=== PATIENT | male | born 1980 | race Caucasian/White ===

== ENCOUNTER 2019-11-12 15:28 | Day surgery (SDC) | payer SELFPAY ==
[2019-11-12] VITALS (11 sets, daily range): BP systolic 126–154; BP diastolic 78–99; PULSE 63–90; RESP 15–18; TEMP 36.1–37.3; O2SAT 97–100
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
[2019-11-12] MEDS: LORazepam 2 mg/mL INJ 1 mL IM (16:08)
[2019-11-12 17:26] LABS: Basophils % 0.4 %; Eosinophils # 0.2 10^3/uL (0.0-0.8); Eosinophils % 1.7 %; Hematocrit 52.3 % (42.0-52.0); Hemoglobin 17.5 g/dL (11.7-16.6); Lymphocytes # 1.9 10^3/uL (0.8-4.8); Lymphocytes % 17.7 %; Mean Corpuscular HGB Conc 33.5 g/dL (30.0-36.0); Mean Corpuscular Volume 92.6 fL (80-94); Mean Platelet Volume 9.1 fL (7.4-10.4); Monocytes # 0.8 10^3/uL (0.2-0.9); Monocytes % 7.1 %; Neutrophils # 7.9 10^3/uL (1.8-7.7); Neutrophils % 72.7 %; Nucleated Red Blood Cells % 0 %; Platelet Count 251 10^3/cmm (130-400); Red Blood Count 5.65 10^6/uL (4.1-5.3); Red Cell Distribution Width 13.4 % (12.1-15.1); White Blood Count 10.8 10^3/uL (4.0-10.0)
[2019-11-12 17:46] LABS: Alanine Aminotransferase 42 U/L (0-41); Albumin Level 4.7 g/dL (3.5-5.2); Alkaline Phosphatase 63 IU/L (40-130); Anion Gap 17.1 (5-19); Aspartate Amino Transferase 74 U/L (0-40); Blood Urea Nitrogen 23 mg/dL (6-20); Calcium 9.3 mg/dL (8.5-10.5); Carbon Dioxide 26 mmol/L (22-29); Chloride 100 mmol/L (98-107); Globulin 2.8 g/dL (1.3-4.6); Glomerular Filtration Rate 74.9 mL/min (90-130); Glucose 89 mg/dL (65-115); Osmolality Calculated 284 mOsm/kg (285-295); Potassium 4.1 mmol/L (3.5-5.1); Sodium 139 mmol/L (136-145); Total Bilirubin 0.8 mg/dL (0.15-1.2); Total Protein 7.5 g/dL (6.6-8.7)
[2019-11-12] MEDS: sodium chloride 0.9% 1,000 ML 30 ML IV (17:50)
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
--- NOTE | 2019-11-12 18:36 | PC.NURSE ---
large yellow ball removed from rectum and disposed of in biohazard trash. berta maldonado
--- NOTE | 2019-11-12 18:57 | PM.OP ---
Operative Report Date of procedure: November 12, 2019 Pre-op Diagnosis: fB rectum Post-op Diagnosis: 9 cm diameter rubber ball in rectum Procedure Done: Flexible sigmoidoscopy Rectal exam under anesthesia with removal of foreign body Specimens removed/disposition: Foreign body rectum, no pathology sent Surgeon: Jose D Baer Anesthesia: MAC Estimated blood loss (mL): 5 Condition: stable Disposition: PACU Procedure: The patient was taken to the operating room and intubated under general anesthesia and placed in lithotomy position. A colonoscope was introduced and advanced into the rectum where the ball was identified. Attempt was made using biopsy forceps to grab the plastic covering over the ball which was unsuccessful. By applying counterpressure on the lower abdomen I was able to slowly free the rubber ball from the suction to the rectal vault until the ball was removed. The colonoscope was introduced and advanced up to the mid sigmoid colon. There was congestion and edema noted in the rectum but no evidence of mucosal tear or perforation. The patient was extubated and transferred to recovery room in stable condition.
--- NOTE | 2019-11-12 19:02 | ANES.PREANE2 ---
Pre-Anesthetic Assessment Pre-Anesthetic Assessment: Height/Weight: Temp Pulse Resp BP Pulse Ox 983.1 F H 64 16 126/78 99 11/12/19 18:57 11/12/19 18:57 11/12/19 18:57 11/12/19 18:57 11/12/19 18:57 Preop Diagnosis: fB rectum Proposed Procedure: Operation Date: 11/12/19 18:00 Proposed Procedures p Foreign Body Removal(Not Applicable) - Jose D Baer MD Was Beta Jeronimo taken within 24 hours: N/A Last intake: NPO since 9AM today Social: Social History: Alcohol and Tobacco Exam: Pre-Anes Outpt Exam: alert, oriented x 3, clear to auscultation bilaterally and regular rate & rhythm Airway: Submandibular: WNL Cervical ROM: WNL MP: 2 History/ROS: No significant history except as noted Pulmonary: Pulmonary: None reported CV/HEM: CV/HEM: None reported : : None reported Hepatic: Hepatic: None reported GI: GI: None reported Metabolic: Metabolic: None reported Musc/skel: Musc/skel: None reported Neuropsych: Neuropsych: None reported Anesthetic Plan: ASA status: 2E Anesthesia: General Meds/Allergies Current Medications: Current Medications Generic Name Dose Route Start Last Admin Trade Name Freq PRN Reason Stop Dose Admin Sodium Chloride 1,000 mls @ 30 ml s/hr 11/12/19 18:15 11/12/19 17:50 Sodium Chloride 0.9% IV 11/13/19 18:14 30 mls/hr .Q24H MICHELLE Administration PFSH Anesthesia PFSH: Social History Smoking and tobacco status: current every day smoker Data Anesthesia CBC & Chem 7: 11/12/19 17:15 11/12/19 17:15 Other Labs: Laboratory Results - last 48 hr 11/12/19 11/12/19 17:15 17:15 WBC 10.8 H RBC 5.65 H Hgb 17.5 H Hct 52.3 H MCV 92.6 MCH 31.0 MCHC 33.5 RDW 13.4 Plt Count 251 MPV 9.1 Neut % (Auto) 72.7 Lymph % (Auto) 17.7 [place] % (Auto) 7.1 Eos % (Auto) 1.7 Baso % (Auto) 0.4 Neut # (Auto) 7.9 H Lymph # (Auto) 1.9 [place] # (Auto) 0.8 Eos # (Auto) 0.2 Baso # (Auto) 0.0 Nucleated RBC % (auto) 0 Nucleated RBCs # 0.0 Sodium 139 Potassium 4.1 Chloride 100 Carbon Dioxide 26 Anion Gap 17.1 BUN 23 H Creatinine 1.1 GFR Calculation 74.9 L Glucose 89 Calculated Osmolality 284 L Calcium 9.3 Total Bilirubin 0.8 AST 74 H ALT 42 H Alkaline Phosphatase 63 Total Protein 7.5 Albumin 4.7 Globulin 2.8 Cardiac Studies: No Data to Display
--- NOTE | 2019-11-12 19:03 | PC.NURSE ---
#20g iv catheter inserted into right hand good blood return and easy flush. berta maldonado
--- NOTE | 2019-11-12 19:05 | SUR.PHASEI ---
PT TO PACU SLEEPY WITH GOOD RESP NOTED PT NOW MORE ALERT MASK OFF PER PT . SATS 100% ON RA TRIAL. PT DENIES PAIN AND NAUSEA ABD SOFT TO PALPATION.
--- NOTE | 2019-11-12 19:10 | SUR.PHASEI ---
PT AWAKES EASILY DENIES PAIN TAKING ICE CHIPS
== END 2019-11-12 19:58 | disposition home or self-care (01) ==
LOC: ER 16:55 → OPS 17:09
PROVIDERS: Emergency Provider Physician Assistant; Visit Provider Surgery
PROC: (CPT 45915; principal; 2019-11-12 18:00)
DX: T18.5XXA Foreign body in anus and rectum, initial encounter (principal); F17.210 Nicotine dependence, cigarettes, uncomplicated
CPT/HCPCS: 45915; 12345; 36415; 45378; 45379; 74022; 80053; 85025; 96372; 99281; J0330; J2001; J2060; J2405; J2704; J2710; J3010; J3490; J7030

== ENCOUNTER 2021-01-18 18:59 | Emergency (ER) | payer SELFPAY ==
[2021-01-18 19:04] VITALS: BP 133/89; PULSE 102; RESP 16; TEMP 36.6; O2SAT 96; BMI 36.5
--- NOTE | 2021-01-18 19:17 | ED_ITS ---
HPI - Headache General: Chief Complaint: Headache Stated Complaint: Sever Pain In Back of Head Time Seen by Provider: 01/18/21 19:09 History of Present Illness: HPI Narrative: Patient is a 40-year-old male comes to the ED with a headache. Symptoms started approximately 4 days ago. He says the initial headache pain was sharp pain in the back of his head that would radiate up to the front of his head. Today he describes the headache as generalized pressure on the back occipital region of his head. He rates it currently a 7 out of 10. He has never had any headaches like this before. Denies any worsening or improving factors. Denies any other symptoms such as vision changes, numbness tingling to extremities or face or any other neurological symptoms. Denies any injury or trauma to head recently. Associated symptoms: Deny chest pain, fever(s), nausea, rash or vomiting Review of Systems Const: Denies: fever(s), chills or fatigue Eyes: Denies: change in vision or eye discomfort ENMT: Denies: throat pain, odynophagia, nasal discharge or nasal congestion Card: Denies: chest pain, palpitations, edema, swelling of feet/ankles, dyspnea on exertion or orthopnea Resp: Denies: dyspnea, productive cough or non-productive cough GI: Denies: abdominal pain, nausea, vomiting, diarrhea, constipation or hematochezia : Denies: flank pain, difficulty urinating, dysuria or hematuria Musc: Denies: neck pain, back pain or extremity swelling Skin/Breast: Denies: rash or new lesions Neuro: Reports: headache(s); Denies: numbness in extremities or weakness in extremities [facility] ED PFSH: Social History Smoking and tobacco status: current every day smoker Physical Exam Const: COMMON NORMALS: no acute distress, patient oriented x3 and alert GENERAL APPEARANCE: cooperative and comfortable HENMT: COMMON NORMALS: normocephalic HEAD & SCALP: normocephalic MOUTH: Normal oral and palatal mucosa present THROAT: posterior oropharynx normal and uvula midline Eye: COMMON NORMALS: Equal, round and reactive pupils present, EOMs intact bilaterally and conjunctivae normal CONJUNCTIVA: Yes conjunctivae normal PUPIL: Yes Equal, round and reactive pupils present Neck/C-Spine: COMMON NORMALS: supple GENERAL: Yes normal visual inspection Resp: COMMON NORMALS: normal respiratory effort, No retractions, No use of accessory muscles and clear to auscultation bilaterally AUSCULTATION: clear t o auscultation bilaterally Cardio: COMMON NORMALS: regular rate, regular rhythm, S1 normal heart sound present, S2 normal heart sound present, No gallops present (Cardio), No clicks present (Cardio), No murmurs present (Cardio) and Peripheral pulses 2+ throughout RATE: regular rate RHYTHM: regular rhythm HEART SOUNDS: S1 normal heart sound present and S2 normal heart sound present PERIPHERAL PULSES: Peripheral pulses 2+ throughout GI: COMMON NORMALS: Normal to inspection, nondistended, normoactive bowel sounds present, Soft to palpation, non-tender and no masses PALPATION: Yes Soft to palpation : COMMON NORMALS: Yes no CVA tenderness BLADDER/KIDNEY EXAM: Yes no CVA tenderness Back/Pelvis: COMMON NORMALS: no CVA tenderness Extremity: COMMON NORMALS: normal to inspection Neuro: COMMON NORMALS: patient oriented x3, CN's II-XII intact bilaterally, moves all extremities, no focal motor deficits and no sensory deficits noted SENSORIUM/ORIENTATION: Yes alert COORDINATION/BALANCE: [id number] test normal SENSORY EXAM: Yes extremities (intact) MOTOR EXAM: 5/5 motor strength present throughout COORDINATION: [id number] test normal Skin: GENERAL SKIN EXAM: dry skin Course Reevaluation(s): Reevaluation #1: After patient received IV meds for headache he says his headache did improve. He now rates the headache a 4 out of 10 and says he is ready to be discharged. Time: 20:21 Vital Signs: Vital signs: Vital Signs Temperature 97.9 F 01/18/21 19:04 Pulse Rate 76 01/18/21 21:00 Respiratory Rate 18 01/18/21 21:00 Blood Pressure 178/113 01/18/21 21:00 Pulse Oximetry 97 01/18/21 21:00 MDM - Headache MDM Narrative: Medical decision making narrative: Patient is a 40-year-old male who comes to the ED with a severe headache in the occipital region of head. Symptoms have been going on for 4 days. He reports having headache on the occipital region of head and he describes it as a pressure. Denies any other symptoms or neurological deficits. Vital stable and neuro exam showed no deficits. CT of head showed no acute findings. Patient was given IV fluids, Reglan, Toradol and Decadron. His headache improved and he felt ready to be discharged home. Patient diagnosed with tension headache and discharged home. He was told to follow-up with his PCP in 7 to 10 days for reevaluation. Patient understood and agree with plan. Imaging Data^: CT Head: Attestation: I personally reviewed and interpreted this imaging study as follows: Radiologist's impression: [address] [address] [address] Scan Report Signed Patient: Feliberto Joseph Unit #: [id number] : 1980 Age/Sex: 40 / M ADM Date: 01/18/21 Loc: ER Room/Bed: Attending Dr: Ordering Provider/Ordering MD: Sanju Zelaya Date of Service: 01/18/21 Procedure(s): CT head wo con* [id number] Accession Number(s): [id number] Report Number: [id number] PROCEDURE INFORMATION: Exam: CT Head Without Contrast Exam date and time: 01/18/2021 7:16 PM Age: 40 years old Clinical indication: Pain; Headache; Additional info: Severe headache to back of head. TECHNIQUE: Imaging protocol: Computed tomography of the head without contrast. Radiation optimization: All CT scans at this facility use at least one of these dose optimization techniques: automated exposure control; mA and/or kV adjustment per patient size (includes targeted exams where dose is matched to clinical indication); or iterative reconstruction. COMPARISON: No relevant prior studies available. RADIATION DOSE METRICS: Total DLP (mGy-cm): 928.89 FINDINGS: Brain: Normal. No hemorrhage. Unremarkable white matter. No mass effect. Cerebral ventricles: No ventriculomegaly. Paranasal sinuses: Visualized sinuses are unremarkable. No fluid levels. Mastoid air cells: Visualized mastoid air cells are well aerated. Bones/joints: Unremarkable. No acute fracture. Soft tissues: Unremarkable. CT/CT head wo con* [id number] IMPRESSION: No acute intracranial abnormality. Radiation Dose CTDIVOL = (mGy): DLP = 928.89 (mGy-cm) Dictated By: Srini Romo Signed By: Srini Romo Signed Date/Time: 01/18/212013 DD/ 12 Discharge Plan Discharge Patient Disposition: Home Clinical Impression: Tension headache Condition: Stable Prescriptions: No Action ibuprofen 200 mg Tablet 200 - 400 mg PO Q6H PRN (Reason: HEADACHE/PAIN) RF: 0 Discharge Orders: Discharge ED (Routine); Ordered 01/18/21 Ordered By: Sanju Zelaya Discharge Diet: Regular Discharge Activity: Resume usual activity Patient Instructions: Tension Headache (ED) Activity Restrictions/Additional Instructions: Follow-up with medical provider as directed in 7 to 10 days for reevaluation. Take [id number] Tylenol or Motrin for any reoccurring headaches. Return to the ER or your medical provider if condition worsens. Please read and understand discharge instructions. Thank you for choosing [facility] for your healthcare needs today. Please realize this is an emergency room and that we are providing you with a medical screening exam and this may not be complete and all inclusive of all the testing and or work up that you may need to determine your ailment or severity of your illness. It is very important that you follow up as instructed or that you return to the Emergency Department should you have concerns or if your condition changes or worsens in any way. Coding Level of Care Code ED Heel Washer Stringing Machine Operator for Anabella Trujillo Exam Comprehensive
[2021-01-18] MEDS: metoclopramide 5 mg/mL SDV 2 mL 10 MG IVP (19:40)
[2021-01-18] MEDS: ketorolac 30 mg/mL INJ IVP (19:49)
[2021-01-18] MEDS: dexamethasone 10 mg/mL INJ IVP (19:49)
[2021-01-18] MEDS: sodium chloride 0.9% 1,000 ML 999 ML IV (19:50)
[2021-01-18 21:00] VITALS: BP 178/113; PULSE 76; RESP 18; O2SAT 97
--- NOTE | 2021-01-18 21:01 | PC.NURSE ---
reviewed patient bp with Dr. Zelaya and he states that his bp is up r/t his stressors and pain he wants him to follow up with his regular pcp to continue to monitor his bp. patient is informed to f/u with pcp
== END 2021-01-18 21:03 | disposition home or self-care (01) ==
PROVIDERS: Emergency Provider Physician Assistant
DX: G44.209 Tension-type headache, unspecified, not intractable (principal); F17.210 Nicotine dependence, cigarettes, uncomplicated
CPT/HCPCS: 70450; 96361; 96374; 96375; 99283; J1100; J1885; J2765; J7030

== ENCOUNTER 2021-01-20 08:09 | Emergency (ER) | payer SELFPAY ==
[2021-01-20 08:20] VITALS: BP 138/111; PULSE 82; RESP 17; TEMP 36.6; O2SAT 96; BMI 36.5
--- NOTE | 2021-01-20 09:37 | ED_ITS ---
HPI - General Adult General: Chief complaint: General Medical Stated complaint: wants to go to npu Time Seen by Provider: 01/20/21 08:13 History of Present Illness: HPI narrative: 40-year-old male presents emergency room wanting to be admitted. He wants to be admitted to the MPU. He states he needs to be admitted because he cannot find anywhere else to stay and he does not want to stay in a homeless detention. He does not want to stay where he is currently been staying which is evidently on the street. He denies any suicidal homicidal ideation. He denies any drug use denies any recent illness. Associated symptoms: Deny chest pain, dyspnea, malaise, nausea, rash or vomiting Review of Systems Const: Denies: fever(s), chills, body aches, change in appetite, fatigue or malaise ENMT: Denies: throat pain, ear or mastoid pain, nasal discharge or nasal congestion Card: Denies: chest pain, edema, dyspnea on exertion or orthopnea Resp: Denies: dyspnea, productive cough or non-productive cough GI: Denies: abdominal pain, nausea, vomiting, hematemesis, coffee ground emesis, diarrhea, constipation, bloating, hematochezia or melena : Denies: flank pain, dysuria, urinary frequency or urinary urgency Skin/Breast: Denies: rash or pruritus PFSH ED PFSH: Social History Smoking and tobacco status: current every day smoker Physical Exam Const: COMMON NORMALS: no acute distress GENERAL APPEARANCE: cooperative and comfortable ORIENTATION/CONSCIOUSNESS: Yes awake, Yes oriented to person, Yes oriented to place and Yes oriented to time HENMT: COMMON NORMALS: normocephalic, atraumatic and hearing grossly normal bilaterally HEAD & SCALP: normocephalic and atraumatic Neck/C-Spine: COMMON NORMALS: no JVD Resp: COMMON NORMALS: normal respiratory effort, No retractions, No use of accessory muscles and clear to auscultation bilaterally AUSCULTATION: clear to auscultation bilaterally Cardio: COMMON NORMALS: no JVD, regular rate, regular rhythm and No murmurs present (Cardio) RATE: regular rate RHYTHM: regular rhythm GI: COMMON NORMALS: Soft to palpation and No hepatosplenomegaly present AUSCULTATION: Yes normoactive bowel sounds PALPATION: Yes Soft to palpation, No Tenderness to palpation present (GI), No Guarding due to palpation present (GI) and Yes No hepatosplenomegaly present Extremity: COMMON NORMALS: normal to inspection, capillary refill normal, no clubbing, cyanosis or edema, no calf tenderness and no pedal edema Neuro: SENSORIUM/ORIENTATION: Yes oriented to person, Yes oriented to place and Yes oriented to time Skin: COMMON NORMALS: no rashes or lesions noted GENERAL SKIN EXAM: no rashes or lesions noted Course Vital Signs: Vital signs: Vital Signs Temperature 97.9 F 01/20/21 08:20 Pulse Rate 82 01/20/21 08:20 Respiratory Rate 17 01/20/21 08:20 Blood Pressure 138/111 01/20/21 08:20 Pulse Oximetry 96 01/20/21 08:20 MDM - General Adult MDM Narrative: Medical decision making narrative: Patient repeatedly denies any suicidal homicidal ideation. Is not even particularly depressed. He just wants a place to stay. He was under the impression that if he came urine asked to go to the stress unit he would be admitted based upon that request. He currently has no acute psychological illnesses or complaints. Will try to assist him as to her propagation manager to find other resources in the area. Discharge Plan Discharge Patient Disposition: Home Clinical Impression: Normal exam Condition: Stable Prescriptions: No Action ibuprofen 200 mg Tablet 200 - 400 mg PO Q6H PRN (Reason: HEADACHE/PAIN) RF: 0 Discharge Orders: Discharge ED (Routine); Ordered 01/20/21 Ordered By: Kel Alcaraz Patient Instructions: Opioid Safety Coding Level of Care Code ED Ammonia Print Operator for Anabella Trujillo
== END 2021-01-20 08:48 | disposition home or self-care (01) ==
PROVIDERS: Emergency Provider Family Medicine
DX: Z03.89 Encounter for observation for other suspected diseases and conditions ruled out (principal); F17.210 Nicotine dependence, cigarettes, uncomplicated
CPT/HCPCS: 99281

== ENCOUNTER 2021-03-20 17:58 | Emergency (ER) | payer SELFPAY ==
[2021-03-20 18:06] VITALS: BP 179/116; PULSE 111; RESP 22; TEMP 36.7; O2SAT 98; BMI 38.5
--- NOTE | 2021-03-20 19:14 | ED_ITS ---
HPI - General Adult General: Chief complaint: General Medical Stated complaint: Think he breathed botulism Time Seen by Provider: 03/20/21 18:58 History of Present Illness: HPI narrative: 40-year-old male presents with mild sore throat. Started earlier today. Denies cough chest pain or shortness of breath. States that he was eating a container of food smelled moldy at the [facility]. He states he was concerned that this had botulism. Denies any muscular weakness. Denies any fever numbness or tingling. Denies any focal pain otherwise. States pain is very mild. Denies recent dental procedures. Denies drooling or changes in his voice. Review of Systems Narrative: - CONSTITUTIONAL: Denies weight loss, fever and chills. - HEENT: Denies changes in vision and hearing. - RESPIRATORY: Denies SOB and cough. - CV: Denies palpitations and CP. - GI: Denies abdominal pain, nausea, vomiting and diarrhea. - : Denies dysuria and urinary frequency. - MSK: Denies myalgia and joint pain. - SKIN: Denies rash and pruritus. - NEUROLOGICAL: Denies headache, weakness, numbness and syncope. - PSYCHIATRIC: Denies suicidal ideation PFS ED PFSH: Social History Smoking and tobacco status: current every day smoker Physical Exam Narrative: EXAM NARRATIVE: - GENERAL: Alert and oriented x 3. No acute distress. Well-nourished. - EYES: EOMI. Anicteric. - HENT: Atraumatic, no C-spine tenderness. Moist mucous membranes. No scleral icterus. No cervical lymphadenopathy. Uvula is midline, no stridor, no induration under the tongue around neck, no signs of Jermain's angina. - LUNGS: Clear to auscultation bilaterally. No accessory muscle use. Equal lung sounds bilaterally. No respiratory distress. - CARDIOVASCULAR: Regular rate and rhythm. No murmur. No JVD. - ABDOMEN: Soft, non-tender and non-distended. Negative CVA tenderness bilaterally, no rebound or guarding, negative Dial sign. No palpable masses. - EXTREMITIES: No edema. Non-tender. - SKIN: No rashes or lesions. Warm. - NEUROLOGIC: No meningismus or focal neurological deficits. CN II-XII grossly intact. - PSYCHIATRIC: Cooperative. Appropriate mood and affect. Course Vital Signs: Vital signs: Vital Signs Temperature 98.0 F 03/20/21 18:06 Pulse Rate 111 H 03/20/21 18:06 Respiratory Rate 22 H 03/20/21 18:06 Blood Pressure 179/116 03/20/21 18:06 Pulse Oximetry 98 03/20/21 18:06 MDM - General Adult MDM Narrative: Medical decision making narrative: 40-year-old male presents due to sore throat. States he is concerned about botulism but does not have any musculoskeletal weakness. States that he is concerned about this because it eating food that smelled moldy. Nonfocal neurologic exam. No sign of deeper infection throat. Did offer to obtain strep and Covid swab patient declined I do believe he has capacity make this decision. He does not appear altered and is not suicidal or homicidal. At this time I believe patient would be safe for discharge and outpatient follow-up. Return precautions provided. Plan was reviewed with the patient who expressed understanding. Questions answered. Patient will follow up with PCP. Patient discharged in stable condition. Discharge Plan Discharge Patient Disposition: Home Clinical Impression: Acute sore throat Condition: Stable Prescriptions: No Action ibuprofen 200 mg Tablet 200 - 400 mg PO Q6H PRN (Reason: HEADACHE/PAIN) RF: 0 Discharge Orders: Discharge ED (Routine); Ordered 03/20/21 Ordered By: Shaw Mccollum Referrals: Your, Pcp [Other] - 1-3 days Patient Instructions: Pharyngitis (ED), Opioid Safety Coding Level of Care Code ED Founder And Chief Technical Officer for Anabella Trujillo
[2021-03-20 19:38] VITALS: BP 165/108; RESP 20; O2SAT 98
== END 2021-03-20 19:30 | disposition home or self-care (01) ==
PROVIDERS: Emergency Provider Emergency Medicine
DX: J02.9 Acute pharyngitis, unspecified (principal); F17.210 Nicotine dependence, cigarettes, uncomplicated
CPT/HCPCS: 99281

== ENCOUNTER 2023-04-09 15:15 | Inpatient (IN) | payer MEDICAID, SELFPAY ==
[2023-04-09 15:24] VITALS: BP 141/110; PULSE 117; TEMP 36.8; O2SAT 97; BMI 36.5
[2023-04-09 16:07] LABS: Basophils # 0.1 10^3/uL (0.0-0.1); Basophils % 0.5 %; Eosinophils # 0.1 10^3/uL (0.0-0.8); Eosinophils % 0.9 %; Hematocrit 55.1 % (37-53); Lymphocytes # 2.8 10^3/uL (0.8-4.8); Lymphocytes % 25.3 %; Mean Corpuscular HGB Conc 32.5 g/dL (30-55); Mean Corpuscular Hemoglobin 30.2 pg (27-33); Mean Corpuscular Volume 93.1 fl (82-101); Mean Platelet Volume 9.7 fL (7.4-10.4); Monocytes # 0.7 10^3/uL (0.2-0.9); Monocytes % 6.5 %; Neutrophils # 7.23 10^3/uL (1.8-7.7); Neutrophils % 66.4 %; Nucleated Red Blood Cells % 0 %; Platelet Count 272 10^3/cmm (157-399); Red Blood Count 5.92 10^6/uL (3.85-5.65); Red Cell Distribution Width 12.6 % (12.1-15.1); White Blood Count 10.88 10^3/uL (3.29-11.43)
[2023-04-09] MEDS: OLANZapine 10 mg VIAL IM (16:08)
--- NOTE | 2023-04-09 16:11 | W.ED.PSYCHS ---
HPI - Psych General: Chief Complaint: Psychiatric Symptoms Stated Complaint: PSYCH EVAL Time Seen by Provider: 04/09/23 15:20 Limitations: altered mental status History of Present Illness: Patient presents here with deputies at bedside. Patient's on a 96-hour hold from the [employer] system. Patient was brought in for auditory visual hallucinations from the crisis center. Patient is resistive to care, irritable, and is a known paranoid schizophrenic who has not been taking his medicine. Review of Systems General: Reports: ROS unobtainable due to medical condition PFSH ED PFSH: Social History Smoking and tobacco/nicotine status: never used tobacco/nicotine Physical Exam Const: COMMON NORMALS: no acute distress, average body habitus, healthy appearing, alert and well nourished EXAM LIMITATIONS: behavioral limitations Neck/C-Spine: COMMON NORMALS: no JVD Chest: COMMONS NORMALS: normal inspection of the chest and normal palpation of entire chest wall Resp: COMMON NORMALS: normal respiratory effort, No retractions, No use of accessory muscles and clear to auscultation bilaterally AUSCULTATION: clear to auscultation bilaterally Cardio: COMMON NORMALS: no JVD, regular rate, regular rhythm, S1 normal heart sound present, S2 normal heart sound present, No gallops present (Cardio), No clicks present (Cardio), No murmurs present (Cardio) and No rub (Cardio) RATE: regular rate RHYTHM: regular rhythm HEART SOUNDS: S1 normal heart sound present and S2 normal heart sound present GI: COMMON NORMALS: Normal to inspection, nondistended, normoactive bowel sounds present, Soft to palpation, non-tender, No hepatosplenomegaly present and no masses PALPATION: Yes Soft to palpation and Yes No hepatosplenomegaly present : COMMON NORMALS: Yes no CVA tenderness BLADDER/KIDNEY EXAM: Yes no CVA tenderness Back/Pelvis: COMMON NORMALS: no CVA tenderness Neuro: SENSORIUM/ORIENTATION: Yes alert Course Vital Signs: Vital signs: Vital Signs Temperature 98.3 F 04/09/23 15:24 Pulse Rate 117 H 04/09/23 15:24 Blood Pressure 141/110 04/09/23 15:24 Pulse Oximetry 97 04/09/23 15:24 Oxygen Delivery Me thod Room Air 04/09/23 15:24 MDM - Psych Medical Decision Making Patient was presented by police for 96-hour hold secondary to acute psychosis secondary to noncompliance with medicine and chronic schizophrenia paranoid type. Patient was worked up in a usual fashion. Patient was given 10 mg Zyprexa when it was thought that he was going to get aggressive. Dr. Campoverde was consulted who agreed to take the patient for further evaluation and treatment in the MPU but said it might be in the morning when he opened up the other waiting if he has aggressive tendencies. Differential Diagnosis Likely acute psychosis and drug-induced psychotic disorder; Unlikely chronic schizophrenia, suicidal ideation, bipolar disorder, depression or acute anxiety Medical Records I reviewed the patient's medical records. Lab Data I reviewed the patient's lab results. 04/09/23 15:55 04/09/23 15:55 Laboratory Results WBC 10.88 10^3/uL (3.29-11.43) 04/09/23 15:55 RBC 5.92 10^6/uL (3.85-5.65) H 04/09/23 15:55 Hgb 17.90 g/dL (11.27-16.99) H 04/09/23 15:55 Hct 55.1 % (37-53) H 04/09/23 15:55 MCV 93.1 fl (82-101) 04/09/23 15:55 MCH 30.2 pg (27-33) 04/09/23 15:55 MCHC 32.5 g/dL (30-55) 04/09/23 15:55 RDW 12.6 % (12.1-15.1) 04/09/23 15:55 Plt Count 272 10^3/cmm (157-399) 04/09/23 15:55 MPV 9.7 fL (7.4-10.4) 04/09/23 15:55 Neut % (Auto) 66.4 % 04/09/23 15:55 Lymph % (Auto) 25.3 % 04/09/23 15:55 [place] % (Auto) 6.5 % 04/09/23 15:55 Eos % (Auto) 0.9 % 04/09/23 15:55 Baso % (Auto) 0.5 % 04/09/23 15:55 Neut # (Auto) 7.23 10^3/uL (1.8-7.7) 04/09/23 15:55 Lymph # (Auto) 2.8 10^3/uL (0.8-4.8) 04/09/23 15:55 [place] # (Auto) 0.7 10^3/uL (0.2-0.9) 04/09/23 15:55 Eos # (Auto) 0.1 10^3/uL (0.0-0.8) 04/09/23 15:55 Baso # (Auto) 0.1 10^3/uL (0.0-0.1) 04/09/23 15:55 Nucleated RBC % (auto) 0 % 04/09/23 15:55 Nucleated RBCs # 0.0 /100WBC 04/09/23 15:55 Sodium 136 mmol/L (136-145) 04/09/23 15:55 Potassium 4.3 mmol/L (3.5-5.1) 04/09/23 15:55 Chloride 98 mmol/L (98-107) 04/09/23 15:55 Carbon Dioxide 23 mmol/L (22-29) 04/09/23 15:55 Anion Gap 19.3 (5-19) H 04/09/23 15:55 BUN 26 mg/dL (6-20) H 04/09/23 15:55 Creatinine 1.1 mg/dL (0.7-1.2) 04/09/23 15:55 GFR Calculation 73.4 mL/min (90-130) L 04/09/23 15:55 Glucose 110 mg/dL (65-115) 04/09/23 15:55 Calculated Osmolality 287 mOsm/kg (285-295) 04/09/23 15:55 Calcium 10.5 mg/dL (8.5-10.5) 04/09/23 15:55 Total Bilirubin 0.9 mg/dL (0.15-1.2) 04/09/23 15:55 AST 24 U/L (0-40) 04/09/23 15:55 ALT 34 U/L (0-41) 04/09/23 15:55 Alkaline Phosphatase 72 U/L (40-130) 04/09/23 15:55 Total Protein 8.6 g/dL (6.6-8.7) 04/09/23 15:55 Albumin 5.0 g/dL (3.5-5.2) 04/09/23 15:55 Globulin 3.6 g/dL (1.3-4.6) 04/09/23 15:55 Salicylates < 0.3 mg/dL (3-10) L 04/09/23 15:55 Acetaminophen < 5.0 ug/mL (10-30) L 04/09/23 15:55 Ethyl Alcohol < 10 mg/dL (0-10) 04/09/23 15:55 No radiology studies performed this visit Discharge Plan Discharge Patient Disposition: Admitted As Inpatient Clinical Impression: Acute psychosis, Chronic schizophrenia Condition: Stable Coding Level of Care Code ED Environmental Conflict Manager for Anabella Trujillo
[2023-04-09 16:19] LABS: Alanine Aminotransferase 34 U/L (0-41); Alkaline Phosphatase 72 U/L (40-130); Anion Gap 19.3 (5-19); Aspartate Amino Transferase 24 U/L (0-40); Blood Urea Nitrogen 26 mg/dL (6-20); Calcium 10.5 mg/dL (8.5-10.5); Carbon Dioxide 23 mmol/L (22-29); Chloride 98 mmol/L (98-107); Globulin 3.6 g/dL (1.3-4.6); Glomerular Filtration Rate 73.4 mL/min (90-130); Glucose 110 mg/dL (65-115); Osmolality Calculated 287 mOsm/kg (285-295); Potassium 4.3 mmol/L (3.5-5.1); Sodium 136 mmol/L (136-145); Total Bilirubin 0.9 mg/dL (0.15-1.2); Total Protein 8.6 g/dL (6.6-8.7)
[2023-04-09 16:20] LABS: Acetaminophen < 5.0 ug/mL (10-30); Alcohol Level < 10 mg/dL (0-10); Salicylate < 0.3 mg/dL (3-10)
[2023-04-09 18:13] VITALS: BP 148/109; PULSE 73; O2SAT 96
--- NOTE | 2023-04-09 18:32 | PC.NURSE ---
96 hr rights reviewed with patient and with assistance of ALBERT Pugh/plant security guard @[id number]. Patient verbalized understanding but also had periods of moments where he would act as if he was unaware of what was taking place or where he was. Trader left patient copy at bedside, and then updated charge nurse as well as primary nurse of patient behavior.
[2023-04-09] MEDS: LORazepam 2 mg/mL INJ 1 mL IM (18:47)
[2023-04-09 19:35] VITALS: BP 150/88
--- NOTE | 2023-04-09 20:43 | PC.NURSE ---
Pt arrived to NPU in w/c w/RN and security at side. Pt appears anxious, and is very difficult to assess d/t loose associations and non-linear thought process. Assessment completed to the best of this nurses ability.
[2023-04-09 20:52] VITALS: BP 150/88
[2023-04-09 20:53] VITALS: BP 130/95; PULSE 96; RESP 18; TEMP 36.3; O2SAT 97
[2023-04-09 21:02] LABS: Add Urine Microscopic? YES; Bilirubin Urine 1+ (Negative); Blood Urine 2+ (Negative); Glucose Urine UA Norm (Normal); Ketones Urine 3+ (Negative); Leukocyte Esterase Urine Negative (Negative); Nitrate Urine Negative (Negative); Protein Urine Trace (Negative); Urine Appearance Clear (CLEAR); Urine Color Amber (Yellow); Urobilinogen Urine Neg (Negative); pH Urine 5 (5-7)
[2023-04-09 21:13] LABS: Amphetamines Screen Urine Positive (Negative); Barbiturates Screen Urine Negative (Negative); Benzodiazepines Screen Urine Positive (Negative); Cocaine Screen Urine Negative (Negative); Opiate Screen Urine Negative (Negative); PCP Screen Urine Negative (Negative); THC Screen Urine Positive (Negative)
[2023-04-09 21:14] LABS: Add Urine Culture? No; Amorphous Sediment Urine 1+ /hpf; Bacteria Urine TRACE /hpf; Mucus Urine 3+ /hpf; RBC Urine 0-4 /hpf (0-2); Squamous Epithelial Cell Urine 0-4 /hpf (0-5); WBC Urine 0-4 /hpf (0-5)
[2023-04-10 06:00] VITALS: BP 117/71; PULSE 80; RESP 16; TEMP 36.5; O2SAT 94
--- NOTE | 2023-04-10 08:15 | XRR_ITS ---
PROCEDURE INFORMATION: Exam: XR Right Hand Exam date and time: 04/10/2023 9:06 AM Age: 42 years old Clinical indication: Injury or trauma; Other: Punched a wall; Blunt trauma (contusions or hematomas); Hand; Right; Additional info: PT punched a wall TECHNIQUE: Imaging protocol: Radiologic exam of the right hand. Views: 3 or more views. COMPARISON: No relevant prior studies available. FINDINGS: Bones/joints: Old fracture deformity right 5th metacarpal. Otherwise, unremarkable. Soft tissues: Normal. XR/XR hand RT min 3V* [id number] IMPRESSION: No acute findings.
--- NOTE | 2023-04-10 08:33 | PC.NURSE ---
AFTER THIS BUILDING EQUIPMENT OPERATOR WAS NOTIFIED THE PT PUNCH THE DOOR I SPOKE WITH HIM AND HE WAS TEARFUL. PT WAS ABLE TO CALM DOWN AND RETURN BACK TO HIS OWN ROOM. I SPOKE WITH THE CHARGE NURSE AND WE GOT A ROOM READY ON THE ACUTE SIDE FOR THIS PT. THIS NURSE TOOK PT TO NEW ROOM AND HE VERBALIZED HE WAS UPSET THAT HE WAS THROWN IN HERE. PT WAS UNABLE TO KEEP THE CONVERSATION ON A SINGLE TOPIC. PT STATED HE WAS IN HERE DUE TO WITCHCRAFT, THEN SPELLED OUT WHICHCRAFT . PT IS CURRENTLY IN THE DAY ROOM EATING BREAKFAST. PT IS PARANOID HE WALKS DOWN THE HALLWAY AND IN THE DAY ROOM.
--- NOTE | 2023-04-10 08:40 | PC.NURSE ---
PT CAME UP TO THE NURSES STATION AND REQUESTED A SPRITE. THIS NURSE EDUCATED PT THAT WE DO NOT ALLOW SODA ON OUR UNIT DUE TO THEM BEING IN METAL CANS. THIS NURSE LISTED THE BEVERAGE OPTIONS OFF TO THE PT.PT THEN STATED I WAS PULLED OFF THE STREETS AND BROUGHT IN HERE SO GET ME A FUCKING SPRITE. THIS NURSE RE-EDUCATED THE PT ON THE FACT THAT SODA IS PROHIBITED ON OUR UNIT. PT BECAME IRRITATED AND WALKED INTO ANOTHER PT ROOM. THIS NURSE HEARD A LOUD THUD AND WENT OUT TO FIND THE PT R HAND BLEEDING. THIS NURSE ASKED IF SHE COULD SEE HIS HAND TO WHICH THE PT STATED NO I JUST WANT A FUCKING SPRITE. THIS NURSE STAYED WITHIN SIGHT OF THE PT AND REQUESTED THAT MAHOGANY MEDRANO SAP DATA ANALYST RETRIEVE BANDAGE MATERIALS FOR THE WOUND AND TO REQUEST SECURITY. PT HAD BLOOD DRIPPING FROM HIS HAND. GATITO PRATHER DIRECTOR FINANCIAL ANALYSIS CAME OUT WITH GLOVES AND SPOKE WITH THE PT WHILE THIS NURSE WENT TO GET GLOVES AND WOUND DRESSING OTHER NURSE COULD NOT FIND APPROPRIATE DRESSING. SHOSHANA MENDENHALL CNA BEGAN USING PURPLE WIPES TO CLEAN THE BLOOD OFF THE FLOOR. GATITO PRATHER DRESSED AND SPOKE WITH THE PT. ONCE PT WAS ABLE TO BE LEFT BY HIMSELF PHYSICIAN WAS CONTACTED AND ORDERS FOR A 3 VIEW XRAY ON HIS HAND WERE ORDERED. PT WAS MOVED TO THE MORE ACUTE SOUTH SIDE INTO A ROOM ON HIS OWN. PT WAS TALKING TO GATITO PRATHER WHO REPORTED THAT PT IS PARANOID, HAS A FLIGHT OF IDEAS, AND BELIEVES THAT IT IS WITCHCRAFT THAT HE IS HERE.
--- NOTE | 2023-04-10 10:06 | PC.OT ---
OT EVALUATION ORDERS RECEIVED. PER NURSING, HOLD EVALUATION AT THIS TIME DUE TO AGGRESSION.
--- NOTE | 2023-04-10 10:56 | P.NPUHP_ITS ---
Providers/Chief Complaint Admitting Physician: Jesus Campoverde MD Chief Complaint: PSYCH EVAL HPI NPU History of Present Illness Feliberto Joseph is a 42 year old male who presented to the emergency department with the following report: Chief Complaint: Psychiatric Symptoms Stated Complaint: PSYCH EVAL Time Seen by Provider: 04/09/23 15:20 Limitations: altered mental status History of Present Illness: Patient presents here with deputies at bedside. Patient's on a 96-hour hold from the court system. Patient was brought in for auditory visual hallucinations from the crisis center. Patient is resistive to care, irritable, and is a known paranoid schizophrenic who has not been taking his medicine. This is a patient who presented to the [facility] crisis stabilization center with altered mental status and reports of paranoia about whether his food is being poisoned appearing different than recent encounters, reporting auditory hallucinations with concerns about his safety. A 96-hour hold was initiated and he was transferred to the emergency department and the patient was admitted to the neuropsychiatric unit for definitive treatment of those issues. The patient presents today reporting that he is not taking any psychiatric medications, that he is aware of. He reports that ?misdirection? is what brought him to the hospital. The patient did not want to talk about psychiatric hospitalizations, saying it is nobody else?s business. It was explained that he is here on a 96- hour hold and he needs to be evaluated to see why he is here and if and for how long he needs to be here. Also explained that if he does not want to answer questions, he can do that, but then the only information will come from the affidavit and his current behaviors as far as this evaluation. The patient reports that he ?got raided? and was thrown out of the place he was staying. He reports that he went to crisis stabilization. The patient reports that he has not had previous psychiatric hospitalizations. He reports that he thinks he has talked to a counselor. He reports that he has had medicine, here and there, but did not answer specifically about psychiatric medications. The patient endorses tobacco, alcohol, and marijuana use. He said he has probably had cocaine, methamphetamine and opiate use. He endorses drug rehabilitation. When asked if he has ever taken medications to help with hearing or seeing things, he said no he has not taken any ?enhancement? drugs. Explained that I would meet with him every day to evaluate whether he is safe for discharge after the 96-hour hold is up, and explained he does not have to answer questions and can refuse medication recommendations, and that that will affect those decisions. PSYCHIATRIC HISTORY: Unable to obtain reliably. SUBSTANCE ABUSE HISTORY: As above. FAMILY HISTORY: Unable to obtain DEVELOPMENTAL HISTORY: Unable to obtain PSYCHOSOCIAL HISTORY: Unable to obtain LEGAL HISTORY: Unable to obtain reliably. MEDICAL HISTORY: The patient denies any known allergies to medications. Meds NPU Home Medications Medication Instructions Recorded Confirmed Last Taken Type No Known Home Medications 04/09/23 04/09/23 Unknown History Allergies Allergy/AdvReac Type Severity Reaction Status Date / Time No Known Allergies Allergy Verified 04/09/23 15:44 PFSH NPU PFSH: Social History Smoking and tobacco/nicotine status: never used tobacco/nicotine Mental Status Exam MSE Comments: This is an obese, white male, in hospital scrubs, with limited grooming and poor eye contact. No abnormal movements, except for psychomotor retardation. Uncooperative with exam in moderate distress. Speech was decreased rate and volume, with some apparent thought blocking. Mood described as still ifeanyi tire d; affect congruent. Thought process, organized. Thought content: patient denied any suicidal or homicidal ideation, there were no delusions reported or noted, patient denied any auditory or visual hallucinations, saying it is possible in other people. Attention, concentration, and memory were limited, but none were formally tested. Alert and oriented to person and place. Insight and judgment appear impaired. Impulse control is impaired. Vitals/I&O/Wt Last Vital Signs Temp 97.7 F 04/10/23 06:00 Pulse 80 04/10/23 06:00 Resp 16 04/10/23 06:00 BP 117/71 04/10/23 06:00 Pulse Ox 94 04/10/23 06:00 O2 Del Method Room Air 04/10/23 06:00 Weight last 48 hrs Weight 108.862 kg Data NPU 04/09/23 15:55 04/09/23 15:55 A&P Assessment and plan (1) Acute psychosis: (2) Chronic schizophrenia: (3) Methamphetamine use disorder, severe: (4) Cannabis use disorder: Involuntary Hold Information 96 Hour Hold: 96 Hour Involuntary Admission: Yes 96 Hour Hold Ending Date: 04/17/23 96 Hour Hold Ending Time: 00:01 Attestations NPU Medical Necessity Statement*: This is a 30-year-old white male who presented to crisis stabilization services with altered mental status which led to him being placed on a 96-hour hold and presents to the neuropsychiatric unit with clear psychosis of unknown etiology without ability or willingness to be an accurate historian. UDS positive for amphetamines and cannabis as well as benzodiazepines which may be secondary to emergency department administration. 1.? Encourage individual, group, and milieu therapy. 2.? Continue q-15-minute checks for safety. 3. We will continue to encourage utilization of antipsychotics. 4. Encourage sober living treatment after discharge at the highest level of care to which he is willing to commit. 5. Likely need for 21-day hold ultimately given psychosis and refusal for interventions. Other Attestations: Other Attestations: Inpatient hospitalization is medically necessary and the clinically appropriate intervention, at this time. We will monitor medications and make changes as indicated. Patient will be in the hospital for over two midnights. Likely length of stay is three to five days Coding Level of Care Code Acute Code for g Fwd Diagnoses Acute psychosis F23 Chronic schizophrenia F20.9 Methamphetamine use disorder, severe F15.20 Cannabis use disorder F12.90
[2023-04-10 14:00] VITALS: BP 146/91; PULSE 87; RESP 17; TEMP 36.4; O2SAT 97
[2023-04-10] MEDS: nicotine 2 mg Gum BUCCAL (17:39)
[2023-04-10 20:20] VITALS: BP 143/92; PULSE 93; RESP 18; TEMP 36.5; O2SAT 97
[2023-04-11 06:00] VITALS: BP 145/82; PULSE 78; RESP 16; TEMP 36.5; O2SAT 98
[2023-04-11 13:45] VITALS: BP 127/82; PULSE 84; RESP 20; TEMP 36.7; O2SAT 96
[2023-04-11] MEDS: nicotine 2 mg Gum BUCCAL ×2 (14:32→18:25)
--- NOTE | 2023-04-11 18:29 | W.PM.NPUPNS ---
Subjective NPU Subjective: Patient presented today continuing to be confused and show signs of disorganized psychosis per staff reports and direct examination. We had a lengthy discussion about the possibility of medication and it was very challenging to hold the conversation as he reported not understanding very straightforward conversation about risks, benefits and alternatives as well as the plan in relation to his 96-hour hold. We also discussed the growing likelihood of a 21-day hold. Mental Status Exam MSE Comments: This is an obese, white male, in hospital scrubs, with limited grooming and poor eye contact. No abnormal movements, except for psychomotor retardation. Uncooperative with exam in moderate distress. Speech was decreased rate and volume, with some apparent thought blocking. Mood described as still ifeanyi tired; affect congruent. Thought process, organized. Thought content: patient denied any suicidal or homicidal ideation, there were no delusions reported or noted, patient denied any auditory or visual hallucinations, saying it is possible in other people. Attention, concentration, and memory were limited, but none were formally tested. Alert and oriented to person and place. Insight and judgment appear impaired. Impulse control is impaired. Vitals/I&O/Wt Last Vital Signs Temp 98.1 F 04/11/23 13:45 Pulse 84 04/11/23 13:45 Resp 20 H 04/11/23 13:45 BP 127/82 04/11/23 13:45 Pulse Ox 96 04/11/23 13:45 O2 Del Method Room Air 04/11/23 13:45 Data NPU 04/09/23 15:55 04/09/23 15:55 A&P Assessment and plan (1) Cannabis use disorder: (2) Methamphetamine use disorder, severe: (3) Acute psychosis: (4) Chronic schizophrenia: Plan This is a 30-year-old white male who presented to crisis stabilization services with altered mental status which led to him being placed on a 96-hour hold and presents to the neuropsychiatric unit with clear psychosis of unknown etiology without ability or willingness to be an accurate historian. UDS positive for amphetamines and cannabis as well as benzodiazepines which may be secondary to emergency department administration. 1.? Encourage individual, group, and milieu therapy. 2.? Continue q-15-minute checks for safety. 3. We will continue to encourage utilization of antipsychotics. 4. Encourage sober living treatment after discharge at the highest level of care to which he is willing to commit. 5. Likely need for 21-day hold ultimately given psychosis and refusal for interventions. Involuntary Hold Information 96 Hour Hold: 96 Hour Involuntary Admission: Yes 96 Hour Hold Ending Date: 04/17/23 96 Hour Hold Ending Time: 00:01 Attestations NPU Medical Necessity Statement*: Inpatient hospitalization is medically necessary and the clinically appropriate intervention, at this time. We will monitor medications and make changes as indicated. Likely length of stay is three to five days Coding Level of Care Code Acute Code for g Fwd Diagnoses Cannabis use disorder F12.90 Methamphetamine use disorder, severe F15.20 Acute psychosis F23 Chronic schizophrenia F20.9
[2023-04-11 20:03] VITALS: BP 159/87; PULSE 85; RESP 17; TEMP 36.3; O2SAT 97
[2023-04-12 06:00] VITALS: BP 170/109; PULSE 88; RESP 18; TEMP 36.4; O2SAT 97
--- NOTE | 2023-04-12 06:37 | PC.NURSE ---
Pt told NT that he was having tingling from his left shoulder to his left arm and had an automatic b/p that was elevated. Upon entry to the room pt states that he is tingling all over, and that he likely slept wrong. B/P rechecked manually w/a reading of 158/96. HRRR, LCTA bilaterally. When assessing pt then states that he chest is hurting a little bit . Dr. Campoverde in his office this am, and was informed of pt c/o. NO received and noted for stat EKG. RT notified of stat order and is here to complete EKG. Will await EKG results.
--- NOTE | 2023-04-12 06:42 | ECG_ITS ---
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 [id number]
--- NOTE | 2023-04-12 09:35 | PC.NURSE ---
Patient thought blocking this morning. He appears irritated, rolling his eyes at questions and even answering when asked if he would like anything to drink this morning, I really don't know lady. I just want to go back to sleep. Patient did deny si/hi and avh. He also abruptly stood up during the assessment and went to the restroom without saying anything. Support was voiced and patient rolled his eyes again.
--- NOTE | 2023-04-12 12:09 | W.PM.NPUPNS ---
Subjective NPU Subjective: Patient presented today reporting that he is doing okay. He was a little more able to communicate today per staff and somewhat notable in exam. He continued to have responses that made no sense and correlation with the question that was asked. He still spoke as if what he was saying had clarity and meaning when it did not. We continue to discuss the likelihood of a 21-day hold being submitted which he continues to not understand why he is even here and that anything is wrong. Mental Status Exam MSE Comments: This is an obese, white male, in hospital scrubs, with limited grooming and poor eye contact. No abnormal movements, except for psychomotor retardation. Uncooperative with exam in moderate distress. Speech was decreased rate and volume, with some apparent thought blocking. Mood described as still ifeanyi tired; affect congruent. Thought process, organized. Thought content: patient denied any suicidal or homicidal ideation, there were no delusions reported or noted, patient denied any auditory or visual hallucinations, saying it is possible in other people. Attention, concentration, and memory were limited, but none were formally tested. Alert and oriented to person and place. Insight and judgment appear impaired. Impulse control is impaired. Vitals/I&O/Wt Last Vital Signs Temp 97.5 F L 04/12/23 06:00 Pulse 88 04/12/23 06:00 Resp 18 04/12/23 06:00 BP 170/109 04/12/23 06:00 Pulse Ox 97 04/12/23 06:00 O2 Del Method Room Air 04/12/23 06:00 Data NPU 04/09/23 15:55 04/09/23 15:55 A&P Assessment and plan (1) Cannabis use disorder: (2) Methamphetamine use disorder, severe: (3) Acute psychosis: (4) Chronic schizophrenia: Plan This is a 30-year-old white male who presented to crisis stabilization services with altered mental status which led to him being placed on a 96-hour hold and presents to the neuropsychiatric unit with clear psychosis of unknown etiology without ability or willingness to be an accurate historian. UDS positive for amphetamines and cannabis as well as benzodiazepines which may be secondary to emergency department administration. 1.? Encourage individual, group, and milieu therapy. 2.? Continue q-15-minute checks for safety. 3. We will continue to encourage utilization of antipsychotics. 4. Encourage sober living treatment after discharge at the highest level of care to which he is willing to commit. 5. Likely need for 21-day hold ultimately given psychosis and refusal for interventions with paperwork likely submitted tomorrow. Involuntary Hold Information 96 Hour Hold: 96 Hour Involuntary Admission: Yes 96 Hour Hold Ending Date: 04/17/23 96 Hour Hold Ending Time: 00:01 Attestations NPU Medical Necessity Statement*: Inpatient hospitalization is medically necessary and the clinically appropriate intervention, at this time. We will monitor medications and make changes as indicated. Likely length of stay is three to five days Coding Level of Care Code Acute Code for g Fwd Diagnoses Cannabis use disorder F12.90 Methamphetamine use disorder, severe F15.20 Acute psychosis F23 Chronic schizophrenia F20.9
[2023-04-12 14:00] VITALS: BP 147/94; PULSE 78; RESP 15; O2SAT 94
[2023-04-12] MEDS: nicotine 2 mg Gum BUCCAL ×2 (16:45→18:58)
[2023-04-12 21:22] VITALS: BP 126/86; PULSE 79; RESP 17; TEMP 36.9; O2SAT 96
[2023-04-13 06:00] VITALS: BP 155/89; PULSE 78; RESP 16; O2SAT 98
[2023-04-13] MEDS: nicotine 2 mg Gum BUCCAL ×2 (11:28→20:23)
[2023-04-13 14:00] VITALS: BP 148/90; PULSE 81; RESP 17; TEMP 36.7; O2SAT 96
[2023-04-13] MEDS: acetaminophen 325 mg Tablet 650 MG PO (15:48)
[2023-04-13] MEDS: nicotine 4 mg lozenge MUCOUS MEM (15:57)
--- NOTE | 2023-04-13 17:45 | P.NPUPN_ITS ---
Subjective NPU Subjective: Patient presented today reporting that he is doing okay. He continued to have thought blocking her staff reports and direct observation. We discussed the fact that we would be submitting a 21-day hold given his lack of mental clarity and inability to make informed consent. He attempted to argue against that but he could not articulate a reasonable argument. He continues to refuse medica tion for his psychosis. Mental Status Exam MSE Comments: This is an obese, white male, in hospital scrubs, with limited grooming and poor eye contact. No abnormal movements, except for psychomotor retardation. Uncooperative with exam in moderate distress. Speech was decreased rate and volume, with some apparent thought blocking. Mood described as okay; affect congruent. Thought process, organized. Thought content: patient denied any suicidal or homicidal ideation, there were no delusions reported or noted, patient denied any auditory or visual hallucinations, saying it is possible in other people. Attention, concentration, and memory were limited, but none were formally tested. Alert and oriented to person and place. Insight and judgment appear impaired. Impulse control is impaired. Vitals/I&O/Wt Last Vital Signs Temp 98.1 F 04/13/23 20:01 Pulse 84 04/13/23 20:01 Resp 20 H 04/13/23 20:01 BP 166/81 04/13/23 20:01 Pulse Ox 95 04/13/23 20:01 O2 Del Method Room Air 04/13/23 20:01 Data NPU 04/09/23 15:55 04/09/23 15:55 A&P Assessment and plan (1) Cannabis use disorder: (2) Methamphetamine use disorder, severe: (3) Acute psychosis: (4) Chronic schizophrenia: Plan This is a 30-year-old white male who presented to crisis stabilization services with altered mental status which led to him being placed on a 96-hour hold and presents to the neuropsychiatric unit with clear psychosis of unknown etiology without ability or willingness to be an accurate historian. UDS positive for amphetamines and cannabis as well as benzodiazepines which may be secondary to emergency department administration. 1.? Encourage individual, group, and milieu therapy. 2.? Continue q-15-minute checks for safety. 3. We will continue to encourage utilization of antipsychotics. 4. Encourage sober living treatment after discharge at the highest level of care to which he is willing to commit. 5. Likely need for 21-day hold ultimately given psychosis and refusal for interventions with paperwork submitted today. Involuntary Hold Information 96 Hour Hold: 96 Hour Involuntary Admission: Yes 96 Hour Hold Ending Date: 04/17/23 96 Hour Hold Ending Time: 00:01 Attestations NPU Medical Necessity Statement*: Inpatient hospitalization is medically necessary and the clinically appropriate intervention, at this time. We will monitor medications and make changes as indicated. Likely length of stay is three to five days Coding Level of Care Code Acute Code for g Fwd Diagnoses Cannabis use disorder F12.90 Methamphetamine use disorder, severe F15.20 Acute psychosis F23 Chronic schizophrenia F20.9
[2023-04-13 20:01] VITALS: BP 166/81; PULSE 84; RESP 20; TEMP 36.7; O2SAT 95
[2023-04-14 06:00] VITALS: BP 162/101; PULSE 79; RESP 17; TEMP 36.4; O2SAT 98
[2023-04-14] MEDS: nicotine 2 mg Gum BUCCAL ×3 (13:11→19:58)
[2023-04-14 14:00] VITALS: BP 136/84; PULSE 87; RESP 20; TEMP 36.6; O2SAT 95
--- NOTE | 2023-04-14 17:14 | W.PM.NPUPNS ---
Subjective NPU Subjective: Patient presented today reporting that he is still not wanting to consider medication. He continues to have odd thinking but showing some improvement per staff reports and direct examination still unable to articulate clear positions on anything. We discussed the likelihood of a 21-day hold hearing on Monday or so. Mental Status Exam MSE Comments: This is an obese, white male, in hospital scrubs, with limited grooming and poor eye contact. No abnormal movements, except for psychomotor retardation. Uncooperative with exam in moderate distress. Speech was decreased rate and volume, with some apparent thought blocking. Mood described as okay; affect congruent. Thought process, organized. Thought content: patient denied any suicidal or homicidal ideation, there were no delusions reported or noted, patient denied any auditory or visual hallucinations, saying it is possible in other people. Attention, concentration, and memory were limited, but none were formally tested. Alert and oriented to person and place. Insight and judgment appear impaired. Impulse control is impaired. Vitals/I&O/Wt Last Vital Signs Temp 98 F 04/14/23 14:00 Pulse 87 04/14/23 14:00 Resp 20 H 04/14/23 14:00 BP 136/84 04/14/23 14:00 Pulse Ox 95 04/14/23 14:00 O2 Del Method Room Air 04/14/23 14:00 Data NPU 04/09/23 15:55 04/09/23 15:55 A&P Assessment and plan (1) Cannabis use disorder: (2) Methamphetamine use disorder, severe: (3) Acute psychosis: (4) Chronic schizophrenia: Plan This is a 30-year-old white male who presented to crisis stabilization services with altered mental status which led to him being placed on a 96-hour hold and presents to the neuropsychiatric unit with clear psychosis of unknown etiology without ability or willingness to be an accurate historian. UDS positive for amphetamines and cannabis as well as benzodiazepines which may be secondary to emergency department administration. 1.? Encourage individual, group, and milieu therapy. 2.? Continue q-15-minute checks for safety. 3. We will continue to encourage utilization of antipsychotics. 4. Encourage sober living treatment after discharge at the highest level of care to which he is willing to commit. 5. Likely need for 21-day hold ultimately given psychosis and refusal for interventions with paperwork submitted yesterday. Involuntary Hold Information 96 Hour Hold: 96 Hour Involuntary Admission: Yes 96 Hour Hold Ending Date: 04/17/23 96 Hour Hold Ending Time: 00:01 Attestations NPU Medical Necessity Statement*: Inpatient hospitalization is medically necessary and the clinically appropriate intervention, at this time. We will monitor medications and make changes as indicated. Likely length of stay is three to five days Coding Level of Care Code Acute Code for Chg Fwd Diagnoses Cannabis use disorder F12.90 Methamphetamine use disorder, severe F15.20 Acute psychosis F23 Chronic schizophrenia F20.9
[2023-04-14 20:09] VITALS: BP 168/94; PULSE 90; RESP 18; TEMP 36.9; O2SAT 96
--- NOTE | 2023-04-14 20:26 | PC.NURSE ---
PT DENIES PAIN, SI/HI AND AVH AT THIS TIME. PT CONTINUES TO DECLINE ANY PRN MEDICATIONS STATING I REALLY DON'T NEED THAT STUFF. PT IS INTERACTIVE WITH STAFF AND PEERS. INTERACTS APPROPRIATELY. SUPPORT VOICED.
[2023-04-15 06:00] VITALS: BP 145/116; PULSE 74; RESP 18; TEMP 36.4; O2SAT 97
--- NOTE | 2023-04-15 08:01 | W.PM.NPUPNS ---
Subjective NPU Subjective: Patient presented today reporting he is fine. There are reports of some improvement in his altered mental status per staff and this is noted on examination but not likely fully improved. He has a support in the community named Dylan Vail and he reports that he will not take medication until Dylan gets here and we discussed this and he has no plans of taking medication. We discussed his psychosis again and our hopes that starting something like Invega would help resolve the likely impact of the methamphetamine more quickly. He was very frustrated with being here and this conversation. Mental Status Exam MSE Comments: This is an obese, white male, in hospital scrubs, with limited grooming and poor eye contact. No abnormal movements, except for psychomotor retardation. Uncooperative with exam in moderate distress. Speech was decreased rate and volume, with some apparent thought blocking. Mood described as okay; affect congruent. Thought process, organized. Thought content: patient denied any suicidal or homicidal ideation, there were no delusions reported or noted, patient denied any auditory or visual hallucinations, saying it is possible in other people. Attention, concentration, and memory were limited, but none were formally tested. Alert and oriented to person and place. Insight and judgment appear impaired. Impulse control is impaired. Vitals/I&O/Wt Last Vital Signs Temp 97.5 F L 04/15/23 06:00 Pulse 74 04/15/23 06:00 Resp 18 04/15/23 06:00 BP 145/116 04/15/23 06:00 Pulse Ox 97 04/15/23 06:00 O2 Del Method Room Air 04/14/23 20:09 Data NPU 04/09/23 15:55 04/09/23 15:55 A&P Assessment and plan (1) Cannabis use disorder: (2) Methamphetamine use disorder, severe: (3) Acute psychosis: (4) Chronic schizophrenia: Plan This is a 30-year-old white male who presented to crisis stabilization services with altered mental status which led to him being placed on a 96-hour hold and presents to the neuropsychiatric unit with clear psychosis of unknown etiology without ability or willingness to be an accurate historian. UDS positive for amphetamines and cannabis as well as benzodiazepines which may be secondary to emergency department administration. 1.? Encourage individual, group, and milieu therapy. 2.? Continue q-15-minute checks for safety. 3. We will continue to encourage utilization of antipsychotics. 4. Encourage sober living treatment after discharge at the highest level of care to which he is willing to commit. 5. Likely need for 21-day hold ultimately given psychosis and refusal for interventions with paperwork submitted 04/13/2023. Involuntary Hold Information 96 Hour Hold: 96 Hour Involuntary Admission: Yes 96 Hour Hold Ending Date: 04/17/23 96 Hour Hold Ending Time: 00:01 Attestations NPU Medical Necessity Statement*: Inpatient hospitalization is medically necessary and the clinically appropriate intervention, at this time. We will monitor medications and make changes as indicated. Likely length of stay is three to five days Coding Level of Care Code Acute Code for [facility] Fwd Diagnoses Cannabis use disorder F12.90 Methamphetamine use disorder, severe F15.20 Acute psychosis F23 Chronic schizophrenia F20.9
[2023-04-15 14:00] VITALS: BP 156/106; PULSE 67; RESP 18; TEMP 36.6; O2SAT 97
[2023-04-15] MEDS: nicotine 2 mg Gum BUCCAL ×2 (14:37→18:04)
[2023-04-15 20:12] VITALS: BP 159/105; PULSE 77; RESP 14; TEMP 36.8; O2SAT 98
[2023-04-16 06:00] VITALS: BP 149/74; PULSE 69; RESP 15; TEMP 36.9; O2SAT 97
--- NOTE | 2023-04-16 08:54 | W.PM.NPUPNS ---
Subjective NPU Subjective: Patient presented today continuing to struggle with precision with worsening communication continue paraphasias. He continues to be resistant to trial of antipsychotic with a belief that they cause psychosis not treat it. Discussed 21-day hold hearing and how that would go. Mental Status Exam MSE Comments: This is an obese, white male, in hospital scrubs, with limited grooming and poor eye contact. No abnormal movements, except for psychomotor retardation. More cooperative with exam in mild distress. Speech was decreased rate and volume, with less apparent thought blocking. Mood described as okay; affect congruent. Thought process, organized. Thought content: patient denied any suicidal or homicidal ideation, there were no delusions reported or noted, patient denied any auditory or visual hallucinations, saying it is possible in other people. Attention, concentration, and memory were limited, but none were formally tested. Alert and oriented to person and place. Insight and judgment appear impaired. Impulse control is improving. Vitals/I&O/Wt Last Vital Signs Temp 98.4 F 04/16/23 06:00 Pulse 69 04/16/23 06:00 Resp 15 04/16/23 06:00 BP 149/74 04/16/23 06:00 Pulse Ox 97 04/16/23 06:00 O2 Del Method Room Air 04/16/23 06:00 Weight last 48 hrs Weight 115.212 kg Data NPU 04/09/23 15:55 04/09/23 15:55 A&P Assessment and plan (1) Cannabis use disorder: (2) Methamphetamine use disorder, severe: (3) Acute psychosis: (4) Chronic schizophrenia: Plan This is a 30-year-old white male who presented to crisis stabilization services with altered mental status which led to him being placed on a 96-hour hold and presents to the neuropsychiatric unit with clear psychosis of unknown etiology without ability or willingness to be an accurate historian. UDS positive for amphetamines and cannabis as well as benzodiazepines which may be secondary to emergency department administration. 1.? Encourage individual, group, and milieu therapy. 2.? Continue q-15-minute checks for safety. 3. We will continue to encourage utilization of antipsychotics. 4. Encourage sober living treatment after discharge at the highest level of care to which he is willing to commit. 5. Likely need for 21-day hold ultimately given psychosis and refusal for interventions with paperwork submitted 04/13/2023. Involuntary Hold Information 96 Hour Hold: 96 Hour Involuntary Admission: Yes 96 Hour Hold Ending Date: 04/17/23 96 Hour Hold Ending Time: 00:01 Attestations NPU Medical Necessity Statement*: Inpatient hospitalization is medically necessary and the clinically appropriate intervention, at this time. We will monitor medications and make changes as indicated. Likely length of stay is three to five days Coding Level of Care Code Acute Code for [facility] Fwd Diagnoses Cannabis use disorder F12.90 Methamphetamine use disorder, severe F15.20 Acute psychosis F23 Chronic schizophrenia F20.9
[2023-04-16] MEDS: nicotine 2 mg Gum BUCCAL ×3 (09:37→20:13)
[2023-04-16 14:00] VITALS: BP 153/110; PULSE 83; RESP 15; TEMP 37; O2SAT 99
[2023-04-16 21:01] VITALS: BP 195/100; PULSE 77; RESP 18; TEMP 36.7; O2SAT 97
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
--- NOTE | 2023-04-16 21:42 | PC.NURSE ---
NYSTATIN NOT AVAILABLE IN [facility]. NYSTATIN UNABLE TO BE GIVEN DUE TO NOT BEING AVAILABLE FROM PHARMACY
[2023-04-17 06:00] VITALS: BP 178/107; PULSE 78; RESP 16; O2SAT 97
[2023-04-17] MEDS: nystatin powder 30 gm Btl 1 APPLIC TOPICAL ×2 (08:38→18:56)
[2023-04-17] MEDS: nicotine 2 mg Gum BUCCAL ×3 (08:38→19:18)
--- NOTE | 2023-04-17 12:20 | W.PM.NPUPNS ---
Subjective NPU Subjective: Patient presented today reporting that he is doing okay. He reports that he knows that he was a little more confused before but feels that he is perfectly fine now. We discussed that he still has difficulty coherently coming to a point and avoiding tangential cognition. We discussed the fact that medication might help that situation. He is upset about that prospect. He reported he is not going to be hearing and we discussed having a conversation after the ruling. Mental Status Exam MSE Comments: This is an obese, white male, in hospital scrubs, with limited grooming and poor eye contact. No abnormal movements, except for psychomotor retardation. More cooperative with exam in mild distress. Speech was decreased rate and volume, with less apparent thought blocking. Mood described as okay; affect congruent. Thought process, organized. Thought content: patient denied any suicidal or homicidal ideation, there were no delusions reported or noted, patient denied any auditory or visual hallucinations, saying it is possible in other people. Attention, concentration, and memory were limited, but none were formally tested. Alert and oriented to person and place. Insight and judgment appear impaired. Impulse control is improving. Vitals/I&O/Wt Last Vital Signs Temp 98.0 F 04/16/23 21:01 Pulse 78 04/17/23 06:00 Resp 16 04/17/23 06:00 BP 178/107 04/17/23 06:00 Pulse Ox 97 04/17/23 06:00 O2 Del Method Room Air 04/17/23 06:00 Weight last 48 hrs Weight 115.212 kg Data NPU 04/09/23 15:55 04/09/23 15:55 A&P Assessment and plan (1) Cannabis use disorder: (2) Methamphetamine use disorder, severe: (3) Acute psychosis: (4) Chronic schizophrenia: Plan This is a 30-year-old white male who presented to crisis stabilization services with altered mental status which led to him being placed on a 96-hour hold and presents to the neuropsychiatric unit with clear psychosis of unknown etiology without ability or willingness to be an accurate historian. UDS positive for amphetamines and cannabis as well as benzodiazepines which may be secondary to emergency department administration. 1.? Encourage individual, group, and milieu therapy. 2.? Continue q-15-minute checks for safety. 3. We will continue to encourage utilization of antipsychotics. 4. Encourage sober living treatment after discharge at the highest level of care to which he is willing to commit. 5. Likely need for 21-day hold ultimately given psychosis and refusal for interventions with paperwork submitted 04/13/2023. 21-day hold hearing today at 1430. Involuntary Hold Information 96 Hour Hold: 96 Hour Involuntary Admission: Yes 96 Hour Hold Ending Date: 04/17/23 96 Hour Hold Ending Time: 00:01 Attestations NPU Medical Necessity Statement*: Inpatient hospitalization is medically necessary and the clinically appropriate intervention, at this time. We will monitor medications and make changes as indicated. Likely length of stay is three to five days Coding Level of Care Code Acute Code for [facility] Fwd Diagnoses Cannabis use disorder F12.90 Methamphetamine use disorder, severe F15.20 Acute psychosis F23 Chronic schizophrenia F20.9
[2023-04-17 14:00] VITALS: BP 165/103; PULSE 81; RESP 18; TEMP 36.7; O2SAT 96
[2023-04-17 20:03] VITALS: BP 178/107; PULSE 79; RESP 18; TEMP 36.9; O2SAT 96
--- NOTE | 2023-04-17 21:05 | PC.NURSE ---
IN DAY ROOM WATCHING TV INTERACTING WITH PEERS. PT CONTINUES TO BE UPSET HE IS ON A 21 DAY HOLD. MEDICATION REGIMEN WAS DISCUSSED. PT STATES HE DOES NOT WANT MEDICATIONS. PT DENIES SI/HI AND AVH AT THIS TIME. DENIES ANXIETY AND DEPRESSION. PT WAS ENCOURAGED TO TAKE MEDICATIONS IN THE AM AND SEE IF THEY HELP. SUPPORT VOICED.
[2023-04-18 06:00] VITALS: BP 154/107; PULSE 69; RESP 18; TEMP 36.4; O2SAT 96
[2023-04-18] MEDS: paliperidone ER 3 mg Tablet PO (07:27)
[2023-04-18] MEDS: nicotine 2 mg Gum BUCCAL ×5 (08:28→20:52)
--- NOTE | 2023-04-18 10:13 | PC.NURSE ---
REFUSED SCHEDULED [facility]STATIN POWDER
--- NOTE | 2023-04-18 11:43 | W.PM.NPUPNS ---
Subjective NPU Subjective: Patient presented today reporting that things are going okay. He was unhappy about the Invega being prescribed but took it without incident. He continues to report the possibility of legal infractions secondary to being exposed to this medication. He continues to for the idea that the medication actually causes psychosis and does not treated. He did not report any side effects at this point. Mental Status Exam MSE Comments: This is an obese, white male, in hospital scrubs, with limited grooming and poor eye contact. No abnormal movements, except for psychomotor retardation. More cooperative with exam in mild distress. Speech was decreased rate and volume, with less thought blocking. Mood described as okay but unhappy about forced medication protocol; affect congruent. Thought process, organized. Thought content: patient denied any suicidal or homicidal ideation, there were no delusions reported or noted, patient denied any auditory or visual hallucinations, saying it is possible in other people. Attention, concentration, and memory were limited, but none were formally tested. Alert and oriented to person and place. Insight and judgment appear impaired. Impulse control is improving. Vitals/I&O/Wt Last Vital Signs Temp 97.5 F L 04/18/23 06:00 Pulse 69 04/18/23 06:00 Resp 18 04/18/23 06:00 BP 154/107 04/18/23 06:00 Pulse Ox 96 04/18/23 06:00 O2 Del Method Room Air 04/17/23 06:00 Data NPU 04/09/23 15:55 04/09/23 15:55 A&P Assessment and plan (1) Cannabis use disorder: (2) Methamphetamine use disorder, severe: (3) Acute psychosis: (4) Chronic schizophrenia: Plan This is a 30-year-old white male who presented to crisis stabilization services with altered mental status which led to him being placed on a 96-hour hold and presents to the neuropsychiatric unit with clear psychosis of unknown etiology without ability or willingness to be an accurate historian. UDS positive for amphetamines and cannabis as well as benzodiazepines which may be secondary to emergency department administration. 1.? Encourage individual, group, and milieu therapy. 2.? Continue q-15-minute checks for safety. 3. We will continue to encourage utilization of antipsychotics. 4. Encourage sober living treatment after discharge at the highest level of care to which he is willing to commit. 5. Likely need for 21-day hold ultimately given psychosis and refusal for interventions with paperwork submitted 04/13/2023. 21-day hold hearing 04/17/2023 at 1430. Hold was granted. In keeping with that patient was prescribed Invega 3 mg p.o. daily and he took that with some resistance this morning. Plan to increase to 6 mg p.o. daily tomorrow. Haldol 5 mg IM to be given for p.o. refusal of Invega. Involuntary Hold Information 96 Hour Hold: 96 Hour Involuntary Admission: Yes 96 Hour Hold Ending Date: 04/17/23 96 Hour Hold Ending Time: 00:01 Attestations NPU Medical Necessity Statement*: Inpatient hospitalization is medically necessary and the clinically appropriate intervention, at this time. We will monitor medications and make changes as indicated. Likely length of stay is three to five days Coding Level of Care Code Acute Code for [facility] Fwd Diagnoses Cannabis use disorder F12.90 Methamphetamine use disorder, severe F15.20 Acute psychosis F23 Chronic schizophrenia F20.9
[2023-04-18 14:00] VITALS: BP 161/100; PULSE 82; RESP 15; TEMP 36.9; O2SAT 96
[2023-04-18 20:57] VITALS: BP 160/103; PULSE 90; RESP 18; TEMP 36.8; O2SAT 98
[2023-04-19 06:00] VITALS: BP 166/85; PULSE 77; RESP 18; O2SAT 96
[2023-04-19] MEDS: paliperidone ER 3 mg Tablet PO ×2 (08:34→11:04)
[2023-04-19] MEDS: nicotine 2 mg Gum BUCCAL ×4 (08:34→16:00)
--- NOTE | 2023-04-19 10:58 | P.NPUPN_ITS ---
Subjective NPU Subjective: Patient presented today reporting that he wants to get out of here as soon as possible. He is taking his medication without force. He continues to be making very small improvements daily but having more effective communication. We discussed the long-acting injectable which she is not wanting to get but we discussed the likelihood of utilizing that to assist him in his decision making. We agreed we discussed that again tomorrow. Mental Status Exam MSE Comments: This is an obese, white male, in hospital scrubs, with limited grooming and poor eye contact. No abnormal movements, except for psychomotor retardation. More cooperative with exam in mild distress. Speech was decreased rate and volume, with less thought blocking. Mood described as okay but unhappy about forced medication protocol; affect congruent. Thought process, organized. Thought content: patient denied any suicidal or homicidal ideation, there were no delusions reported or noted, patient denied any auditory or visual hallucinations, saying it is possible in other people. Attention, concentration, and memory were limited, but none were formally tested. Alert and oriented to person and place. Insight and judgment appear impaired. Impulse control is improving. Vitals/I&O/Wt Last Vital Signs Temp 98.2 F 04/18/23 20:57 Pulse 77 04/19/23 06:00 Resp 18 04/19/23 06:00 BP 166/85 04/19/23 06:00 Pulse Ox 96 04/19/23 06:00 O2 Del Method Room Air 04/19/23 06:00 Data NPU 04/09/23 15:55 04/09/23 15:55 A&P Assessment and plan (1) Cannabis use disorder: (2) Methamphetamine use disorder, severe: (3) Acute psychosis: (4) Chronic schizophrenia: Plan This is a 30-year-old white male who presented to crisis stabilization services with altered mental status which led to him being placed on a 96-hour hold and presents to the neuropsychiatric unit with clear psychosis of unknown etiology without ability or willingness to be an accurate historian. UDS positive for amphetamines and cannabis as well as benzodiazepines which may be secondary to emergency department administration. 1.? Encourage individual, group, and milieu therapy. 2.? Continue q-15-minute checks for safety. 3. We will continue to encourage utilization of antipsychotics. 4. Encourage sober living treatment after discharge at the highest level of care to which he is willing to commit. 5. Likely need for 21-day hold ultimately given psychosis and refusal for interventions with paperwork submitted 04/13/2023. 21-day hold hearing 04/17/2023 at 1430. Hold was granted. In keeping with that patient was prescribed Invega 3 mg p.o. daily and he took that with some resistance this mor marguerite. Invega increased to 6 mg p.o. daily 04/19/2023. Haldol 5 mg IM to be given for p.o. refusal of Invega. Involuntary Hold Information 96 Hour Hold: 96 Hour Involuntary Admission: Yes 96 Hour Hold Ending Date: 04/17/23 96 Hour Hold Ending Time: 00:01 Attestations NPU Medical Necessity Statement*: Inpatient hospitalization is medically necessary and the clinically appropriate intervention, at this time. We will monitor medications and make changes as indicated. Likely length of stay is three to five days Coding Level of Care Code Acute Code for [facility] Fwd Diagnoses Cannabis use disorder F12.90 Methamphetamine use disorder, severe F15.20 Acute psychosis F23 Chronic schizophrenia F20.9
[2023-04-19] MEDS: multivitamin therapeutic Tablet 1 TAB PO (12:59)
[2023-04-19 14:00] VITALS: BP 167/94; PULSE 87; RESP 18; TEMP 36.4; O2SAT 97
[2023-04-19] MEDS: nicotine 4 mg lozenge MUCOUS MEM (18:13)
[2023-04-19 21:28] VITALS: BP 159/106; PULSE 101; RESP 18; TEMP 36.6; O2SAT 95
[2023-04-20 06:00] VITALS: BP 102/85; PULSE 84; RESP 16; O2SAT 98
[2023-04-20] MEDS: multivitamin therapeutic Tablet 1 TAB PO (07:58)
[2023-04-20] MEDS: paliperidone ER 6 mg Tablet PO (07:58)
[2023-04-20] MEDS: nicotine 2 mg Gum BUCCAL ×4 (08:01→19:11)
[2023-04-20] MEDS: nicotine 4 mg lozenge MUCOUS MEM (12:41)
[2023-04-20 13:51] VITALS: BP 154/102; PULSE 98; RESP 18; TEMP 36.8; O2SAT 96
--- NOTE | 2023-04-20 16:19 | W.PM.NPUPNS ---
Subjective NPU Subjective: Patient presented today reporting that he is doing pretty well. We discussed some having more spontaneous speech and less thought blocking and had a conversation about that likely a combination of avoiding methamphetamine and the impact of the Invega. He was not happy about giving the Invega any credit. He continues to explore the possibility of the long-acting injection. Mental Status Exam MSE Comments: This is an obese, white male, in hospital scrubs, with limited grooming and poor eye contact. No abnormal movements, except for psychomotor retardation. More cooperative with exam in mild distress. Speech was decreased rate and volume, with less thought blocking. Mood described as okay; affect congruent. Thought process, organized. Thought content: patient denied any suicidal or homicidal ideation, there were no delusions reported or noted, patient denied any auditory or visual hallucinations, saying it is possible in other people. Attention, concentration, and memory were limited, but none were formally tested. Alert and oriented to person and place. Insight and judgment appear impaired. Impulse control is improving. Vitals/I&O/Wt Last Vital Signs Temp 97.6 F 04/20/23 20:10 Pulse 81 04/20/23 20:10 Resp 20 H 04/20/23 20:10 BP 153/96 04/20/23 20:10 Pulse Ox 98 04/20/23 20:10 O2 Del Method Room Air 04/20/23 20:10 Data NPU 04/09/23 15:55 04/09/23 15:55 A&P Assessment and plan (1) Cannabis use disorder: (2) Methamphetamine use disorder, severe: (3) Acute psychosis: (4) Chronic schizophrenia: Plan This is a 30-year-old white male who presented to crisis stabilization services with altered mental status which led to him being placed on a 96-hour hold and presents to the neuropsychiatric unit with clear psychosis of unknown etiology without ability or willingness to be an accurate historian. UDS positive for amphetamines and cannabis as well as benzodiazepines which may be secondary to emergency department administration. 1.? Encourage individual, group, and milieu therapy. 2.? Continue q-15-minute checks for safety. 3. We will continue to encourage utilization of antipsychotics. 4. Encourage sober living treatment after discharge at the highest level of care to which he is willing to commit. 5. Likely need for 21-day hold ultimately given psychosis and refusal for interventions with paperwork submitted 04/13/2023. 21-day hold hearing 04/17/2023 at 1430. Hold was granted. In keeping with that patient was prescribed Invega 3 mg p.o. daily and he took that with some resistance this morning. Invega increased to 6 mg p.o. daily 04/19/2023. Haldol 5 mg IM to be given for p.o. refusal of Invega. Consider Invega Sustenna injection. Involuntary Hold Information 96 Hour Hold: 96 Hour Involuntary Admission: Yes 96 Hour Hold Ending Date: 04/17/23 96 Hour Hold Ending Time: 00:01 Attestations NPU Medical Necessity Statement*: Inpatient hospitalization is medically necessary and the clinically appropriate intervention, at this time. We will monitor medications and make changes as indicated. Likely length of stay is three to five days Coding Level of Care Code Acute Code for g Fwd Diagnoses Cannabis use disorder F12.90 Methamphetamine use disorder, severe F15.20 Acute psychosis F23 Chronic schizophrenia F20.9
[2023-04-20] MEDS: acetaminophen 325 mg Tablet 650 MG PO (19:25)
[2023-04-20 20:10] VITALS: BP 153/96; PULSE 81; RESP 20; TEMP 36.4; O2SAT 98
[2023-04-21 06:00] VITALS: BP 159/105; PULSE 85; RESP 17; TEMP 36.5; O2SAT 98
[2023-04-21] MEDS: acetaminophen 325 mg Tablet 650 MG PO ×2 (06:49→15:39)
[2023-04-21] MEDS: nicotine 2 mg Gum BUCCAL ×7 (06:49→22:41)
[2023-04-21] MEDS: multivitamin therapeutic Tablet 1 TAB PO (08:07)
[2023-04-21] MEDS: paliperidone ER 6 mg Tablet PO (08:07)
[2023-04-21 09:40] VITALS: BP 150/102
[2023-04-21] MEDS: ibuprofen 600 mg Tablet PO (09:55)
--- NOTE | 2023-04-21 13:10 | W.PM.NPUPNS ---
Subjective NPU Subjective: Patient presented today reporting that things are going okay. Staff reports of diminished thought blocking which was observed on direct examination. Much more spontaneous speech and exchanges. Continues to be quite resistant to the idea that there was anything wrong with him or that the medication is in part responsible for his clear improvement slowly day by day. He denied any side effects of the medication. Mental Status Exam MSE Comments: This is an obese, white male, in hospital scrubs, with improving grooming and eye contact. No abnormal movements, except for resolving psychomotor retardation. More cooperative with exam in mild distress. Speech was more normal rate and volume, with very limited thought blocking. Mood described as better; affect congruent. Thought process, organized. Thought content: patient denied any suicidal or homicidal ideation, there were no delusions reported or noted, patient denied any auditory or visual hallucinations. Attention, concentration, and memory were limited, but none were formally tested. Alert and oriented x3. Insight and judgment appear impaired. Impulse control is improving. Vitals/I&O/Wt Last Vital Signs Temp 97.7 F 04/21/23 06:00 Pulse 85 04/21/23 06:00 Resp 17 04/21/23 06:00 BP 150/102 04/21/23 09:40 Pulse Ox 98 04/21/23 06:00 O2 Del Method Room Air 04/21/23 06:00 04/20/23 04/21/23 04/21/23 22:59 06:59 14:59 Intake Total 600 / 600 Balance 600 / 600 Data NPU 04/09/23 15:55 04/09/23 15:55 A&P Assessment and plan (1) Cannabis use disorder: (2) Methamphetamine use disorder, severe: (3) Acute psychosis: (4) Chronic schizophrenia: Plan This is a 30-year-old white male who presented to crisis stabilization services with altered mental status which led to him being placed on a 96-hour hold and presents to the neuropsychiatric unit with clear psychosis of unknown etiology without ability or willingness to be an accurate historian. UDS positive for amphetamines and cannabis as well as benzodiazepines which may be secondary to emergency department administration. 1.? Encourage individual, group, and milieu therapy. 2.? Continue q-15-minute checks for safety. 3. We will continue to encourage utilization of antipsychotics. 4. Encourage sober living treatment after discharge at the highest level of care to which he is willing to commit. 5. Likely need for 21-day hold ultimately given psychosis and refusal for interventions with paperwork submitted 04/13/2023. 21-day hold hearing 04/17/2023 at 1430. Hold was granted. In keeping with that patient was prescribed Invega 3 mg p.o. daily and he took that with some resistance this morning. Invega increased to 6 mg p.o. daily 04/19/2023. Haldol 5 mg IM to be given for p.o. refusal of Invega. Given Invega Sustenna 234 mg IM to deltoid loading dose. Second dose by 04/28/2023. Begin tapering oral dosing. Involuntary Hold Information 96 Hour Hold: 96 Hour Involuntary Admission: Yes 96 Hour Hold Ending Date: 04/17/23 96 Hour Hold Ending Time: 00:01 Attestations NPU Medical Necessity Statement*: Inpatient hospitalization is medically necessary and the clinically appropriate intervention, at this time. We will monitor medications and make changes as indicated. Likely length of stay is three to five days Coding Level of Care Code Acute Code for [facility] Fwd Diagnoses Cannabis use disorder F12.90 Methamphetamine use disorder, severe F15.20 Acute psychosis F23 Chronic schizophrenia F20.9
[2023-04-21 13:13] VITALS: BP 170/90
[2023-04-21] MEDS: lisinopril 10 mg Tablet PO (13:14)
[2023-04-21] MEDS: paliperidone palmitate 234 mg Syringe IM (13:14)
[2023-04-21 14:00] VITALS: BP 174/95; PULSE 84; RESP 16; TEMP 36.6; O2SAT 94
[2023-04-21 19:49] VITALS: BP 177/107; PULSE 88; RESP 18; TEMP 37.6; O2SAT 96
[2023-04-22] MEDS: nicotine 2 mg Gum BUCCAL ×4 (01:22→18:35)
[2023-04-22] MEDS: ibuprofen 600 mg Tablet PO ×2 (04:22→11:01)
[2023-04-22 06:00] VITALS: BP 163/95; PULSE 75; RESP 18; TEMP 36.8; O2SAT 97
[2023-04-22] MEDS: calcium carbonate 500 mg Chew Tablet 1000 MG PO ×2 (08:11→12:33)
[2023-04-22] MEDS: paliperidone ER 6 mg Tablet PO (08:11)
[2023-04-22] MEDS: multivitamin therapeutic Tablet 1 TAB PO (08:11)
[2023-04-22] MEDS: nystatin powder 30 gm Btl 1 APPLIC TOPICAL (08:11)
[2023-04-22] MEDS: lisinopril 10 mg Tablet PO (08:11)
[2023-04-22] MEDS: acetaminophen 325 mg Tablet 650 MG PO ×2 (13:14→20:05)
[2023-04-22 13:19] VITALS: BP 153/108; PULSE 98; RESP 17; TEMP 36.6; O2SAT 96
[2023-04-22] MEDS: loperamide 2 mg Capsule PO (14:50)
--- NOTE | 2023-04-22 16:34 | P.NPUPN_ITS ---
Subjective NPU Subjective: Patient presented today reporting that he is doing okay. He denied any problems with the medication including the injection. We discussed that Dr. Darling will be here tomorrow and ensure that he gets his second loading dose next week. We discussed that they will start considering the prospect of discharge after that second dose. Mental Status Exam MSE Comments: This is an obese, white male, in hospital scrubs, with improving grooming and eye contact. No abnormal movements, except for resolving psychomotor retardation. More cooperative with exam in mild distress. Speech was more normal rate and volume, with very limited thought blocking. Mood described as better; affect congruent. Thought process, organized. Thought content: patient denied any suicidal or homicidal ideation, there were no delusions reported or noted, patient denied any auditory or visual hallucinations. Attention, concentration, and memory were limited, but none were formally tested. Alert and oriented x3. Insight and judgment appear impaired. Impulse control is improving. Vitals/I&O/Wt Last Vital Signs Temp 97.9 F 04/22/23 13:19 Pulse 98 04/22/23 13:19 Resp 17 04/22/23 13:19 BP 153/108 04/22/23 13:19 Pulse Ox 96 04/22/23 13:19 O2 Del Method Room Air 04/22/23 13:19 Data NPU 04/09/23 15:55 04/09/23 15:55 A&P Assessment and plan (1) Cannabis use disorder: (2) Methamphetamine use disorder, severe: (3) Acute psychosis: (4) Chronic schizophrenia: Plan This is a 30-year-old white male who presented to crisis stabilization services with altered mental status which led to him being placed on a 96-hour hold and presents to the neuropsychiatric unit with clear psychosis of unknown etiology without ability or willingness to be an accurate historian. UDS positive for amphetamines and cannabis as well as benzodiazepines which may be secondary to emergency department administration. 1.? Encourage individual, group, and milieu therapy. 2.? Continue q-15-minute checks for safety. 3. We will continue to encourage utilization of antipsychotics. 4. Encourage sober living treatment after discharge at the highest level of care to which he is willing to commit. 5. Likely need for 21-day hold ultimately given psychosis and refusal for interventions with paperwork submitted 04/13/2023. 21-day hold hearing 04/17/2023 at 1430. Hold was granted. In keeping with that patient was prescribed Invega 3 mg p.o. daily and he took that with some resistance this morning. Invega increased to 6 mg p.o. daily 04/19/2023. Haldol 5 mg IM to be given for p.o. refusal of Invega. Given Invega Sustenna 234 mg IM to deltoid loading dose. Second dose by 04/28/2023. Begin tapering oral dosing. Involuntary Hold Information 96 Hour Hold: 96 Hour Involuntary Admission: Yes 96 Hour Hold Ending Date: 04/17/23 96 Hour Hold Ending Time: 00:01 Attestations NPU Medical Necessity Statement*: Inpatient hospitalization is medically necessary and the clinically appropriate intervention, at this time. We will monitor medications and make changes as indicated. Likely length of stay is three to five days Coding Level of Care Code Acute Code for [facility] Fwd Diagnoses Cannabis use disorder F12.90 Methamphetamine use disorder, severe F15.20 Acute psychosis F23 Chronic schizophrenia F20.9
[2023-04-22] MEDS: diphenoxylate/atropine Tablet 1 TAB PO (17:34)
[2023-04-22 19:50] VITALS: BP 162/101; PULSE 68; RESP 18; TEMP 36.6; O2SAT 93
[2023-04-22] MEDS: nicotine 4 mg lozenge MUCOUS MEM (20:46)
[2023-04-22] MEDS: OLANZapine 5 mg ODT PO (20:54)
[2023-04-23 06:00] VITALS: BP 152/96; PULSE 73; RESP 16; TEMP 36.7; O2SAT 95
[2023-04-23] MEDS: multivitamin therapeutic Tablet 1 TAB PO (08:15)
[2023-04-23] MEDS: lisinopril 10 mg Tablet PO (08:15)
[2023-04-23] MEDS: loperamide 2 mg Capsule PO ×2 (08:15→16:14)
[2023-04-23] MEDS: paliperidone ER 6 mg Tablet PO (08:15)
[2023-04-23] MEDS: nicotine 2 mg Gum BUCCAL ×6 (08:21→21:53)
[2023-04-23] MEDS: ibuprofen 600 mg Tablet PO ×2 (12:22→19:16)
[2023-04-23 14:00] VITALS: BP 132/81; PULSE 93; RESP 14; TEMP 36.7; O2SAT 98
[2023-04-23] MEDS: acetaminophen 325 mg Tablet 650 MG PO ×2 (16:14→23:53)
--- NOTE | 2023-04-23 18:06 | P.NPUPN_ITS ---
Subjective NPU Subjective: Patient is a 42-year-old male admitted with a history of schizophrenia who had been staying at [facility]. He states that he had been on medications but stated that he did not need to be on them. He states that he wishes to go home. He had acknowledged having used a little bit of methamphetamine . He reports that he had been inappropriately placed in here based on the statement of florentino toure that I thought I knew . The patient continued to reiterate that he did not need to have an injection. He had reported no prior history of inpatient psychiatric treatment despite there being evidence otherwise. Mental Status Exam MSE Comments: This is an obese, white male, in hospital scrubs, with improving grooming and eye contact. No abnormal movements, except for resolving psychomotor r etardation. He was somewhat guarded with exam in mild distress. Speech was more normal rate and volume, with very limited thought blocking. Mood described as better; affect was irritable. Thought process was linear. Thought content: patient denied any suicidal or homicidal ideation. There was continued evidence of paranoid process. The patient denied any auditory or visual hallucinations. Attention, concentration, and memory were limited, but none were formally tested. Alert and oriented x3. Insight and judgment appear impaired. Impulse control is improving. Vitals/I&O/Wt Last Vital Signs Temp 98.1 F 04/23/23 14:00 Pulse 93 04/23/23 14:00 Resp 14 04/23/23 14:00 BP 132/81 04/23/23 14:00 Pulse Ox 98 04/23/23 14:00 O2 Del Method Room Air 04/23/23 06:00 Weight last 48 hrs Weight 115.439 kg Data NPU 04/09/23 15:55 04/09/23 15:55 A&P Assessment and plan (1) Cannabis use disorder: (2) Methamphetamine use disorder, severe: (3) Acute psychosis: (4) Chronic schizophrenia: Plan This is a 30-year-old white male who presented to crisis stabilization services with altered mental status which led to him being placed on a 96-hour hold and presents to the neuropsychiatric unit with clear psychosis of unknown etiology without ability or willingness to be an accurate historian. UDS positive for amphetamines and cannabis as well as benzodiazepines which may be secondary to emergency department administration. 1.? Encourage individual, group, and milieu therapy. 2.? Continue q-15-minute checks for safety. 3. We will continue to encourage utilization of antipsychotics. 4. Encourage sober living treatment after discharge at the highest level of care to which he is willing to commit. 5. Likely need for 21-day hold ultimately given psychosis and refusal for interventions with paperwork submitted 04/13/2023. 21-day hold hearing 04/17/2023 at 1430. Hold was granted. In keeping with that patient was prescribed Invega 3 mg p.o. daily and he took that with some resistance this morning. Invega increased to 6 mg p.o. daily 04/19/2023. Haldol 5 mg IM to be given for p.o. refusal of Invega. Given Invega Sustenna 234 mg IM to deltoid loading dose. Second dose by 04/28/2023. Begin tapering oral dosing. Involuntary Hold Information 96 Hour Hold: 96 Hour Involuntary Admission: Yes 96 Hour Hold Ending Date: 04/17/23 96 Hour Hold Ending Time: 00:01 Attestations NPU Medical Necessity Statement*: Inpatient hospitalization is medically necessary and the clinically appropriate intervention, at this time. We will monitor medications and make changes as indicated. The patient's likely length of stay is three to five days. Coding Level of Care Code Acute Code for [facility] Diagnoses Cannabis use disorder F12.90 Methamphetamine use disorder, severe F15.20 Acute psychosis F23 Chronic schizophrenia F20.9
[2023-04-23 19:59] VITALS: BP 160/98; PULSE 94; RESP 18; TEMP 36.5; O2SAT 96
[2023-04-24 06:00] VITALS: BP 139/84; PULSE 78; RESP 18; O2SAT 97
[2023-04-24] MEDS: lisinopril 10 mg Tablet PO (07:59)
[2023-04-24] MEDS: paliperidone ER 6 mg Tablet PO (07:59)
[2023-04-24] MEDS: multivitamin therapeutic Tablet 1 TAB PO (07:59)
[2023-04-24] MEDS: nicotine 2 mg Gum BUCCAL ×5 (08:34→20:54)
[2023-04-24] MEDS: acetaminophen 325 mg Tablet 650 MG PO ×3 (08:34→20:54)
[2023-04-24] MEDS: ibuprofen 600 mg Tablet PO ×2 (12:18→19:04)
[2023-04-24] MEDS: blistex lip oint 7 gm Tube 1 APPLIC TOPICAL (13:52)
[2023-04-24 14:00] VITALS: BP 168/99; PULSE 89; RESP 16; TEMP 36.8; O2SAT 97
[2023-04-24] MEDS: nicotine 4 mg lozenge MUCOUS MEM (16:39)
--- NOTE | 2023-04-24 17:40 | P.NPUPN_ITS ---
Subjective NPU Subjective: Patient is a 42-year-old male admitted with a history of schizophrenia who had been staying at [facility]. Patient was compliant and redirectable on the unit. He reported no side effects from his Invega. He had reported having chronic distrust of others and stated that he had had a difficult life and had spent significant amount of time without a home for several years. He had stated that he may have used methamphetamine and continued to diminish the potential for the methamphetamine to have induced psychosis. He had reported feeling better today. He had complained of having pain in his tooth and reported having an infection there for several weeks. The patient denied having any thoughts of hurting himself or others today. Mental Status Exam MSE Comments: This is an obese, white male, in hospital scrubs, with improving grooming and eye contact. No abnormal movements, except for resolving psychomotor retardation. He was somewhat guarded with exam in mild distress. Speech was more normal rate and volume, with no thought blocking noted. Mood described as better; affect was calmer today. Thought process was linear. Thought content: patient denied any suicidal or homicidal ideation. There was continued evidence of paranoid process. The patient denied any auditory or visual hallucinations. Attention, concentration, and memory were limited, but none were formally tested. Alert and oriented x3. Insight was poor and judgment appear impaired. Impulse control is improving. Vitals/I&O/Wt Last Vital Signs Temp 98.3 F 04/24/23 14:00 Pulse 89 04/24/23 14:00 Resp 16 04/24/23 14:00 BP 168/99 04/24/23 14:00 Pulse Ox 97 04/24/23 14:00 O2 Del Method Room Air 04/24/23 14:00 Weight last 48 hrs Weight 115.439 kg Data NPU 04/09/23 15:55 04/09/23 15:55 A&P Assessment and plan (1) Acute psychosis: (2) Methamphetamine use disorder, severe: (3) Cannabis use disorder: Plan This is a 30-year-old white male who presented to crisis stabilization services with altered mental status which led to him being placed on a 96-hour hold and presents to the neuropsychiatric unit with clear psychosis of unknown etiology w ithout ability or willingness to be an accurate historian. UDS positive for amphetamines and cannabis as well as benzodiazepines which may be secondary to emergency department administration. 1.? Encourage individual, group, and milieu therapy. 2.? Continue q-15-minute checks for safety. 3. We will continue to encourage utilization of antipsychotics. 4. Encourage sober living treatment after discharge at the highest level of care to which he is willing to commit. 5. Patient doing better, will reduce Invega oral to 3 mg daily with plan for Invega injection second dose in 2 days. 6. Amoxicillin 500mg tid for abcess. Involuntary Hold Information 96 Hour Hold: 96 Hour Involuntary Admission: Yes 96 Hour Hold Ending Date: 04/17/23 96 Hour Hold Ending Time: 00:01 Attestations NPU Medical Necessity Statement*: Inpatient hospitalization is medically necessary and the clinically appropriate intervention, at this time. We will monitor medications and make changes as indicated. The patient's likely length of stay is two to three days. Coding Level of Care Code Acute Code for [facility] Fwd Diagnoses Acute psychosis F23 Methamphetamine use disorder, severe F15.20 Cannabis use disorder F12.90
[2023-04-24 20:06] VITALS: BP 154/94; PULSE 102; RESP 18; TEMP 36.8; O2SAT 97
[2023-04-24] MEDS: benzocaine 20% 7 gm 1 APPLIC MUCOUS MEM (20:53)
[2023-04-24] MEDS: hyDROXYzine 25 mg Capsule 50 MG PO (21:49)
[2023-04-25] MEDS: loperamide 2 mg Capsule PO ×3 (01:04→20:33)
[2023-04-25] MEDS: ibuprofen 600 mg Tablet PO ×3 (01:04→20:34)
[2023-04-25 06:00] VITALS: BP 157/100; PULSE 78; RESP 15; O2SAT 98
[2023-04-25] MEDS: diphenoxylate/atropine Tablet 1 TAB PO (06:33)
[2023-04-25] MEDS: nicotine 2 mg Gum BUCCAL ×4 (06:33→20:36)
[2023-04-25] MEDS: lisinopril 10 mg Tablet PO (08:27)
[2023-04-25] MEDS: multivitamin therapeutic Tablet 1 TAB PO (08:27)
[2023-04-25] MEDS: acetaminophen 325 mg Tablet 650 MG PO ×2 (08:27→17:51)
[2023-04-25] MEDS: paliperidone ER 3 mg Tablet PO (08:27)
[2023-04-25] MEDS: nystatin powder 30 gm Btl 1 APPLIC TOPICAL (09:19)
[2023-04-25] MEDS: nicotine 4 mg lozenge MUCOUS MEM ×2 (11:43→14:10)
[2023-04-25 14:00] VITALS: BP 153/93; PULSE 85; RESP 16; TEMP 36.9; O2SAT 97
--- NOTE | 2023-04-25 15:52 | W.PM.NPUPNS ---
Subjective NPU Subjective: Patient is a 42-year-old male admitted with a history of psychosis likely secondary to methamphetamine use. Patient reported no side effects from his medication. He reports that he would likely stop his medications once he leaves the hospital. He had minimized the possibility that the methamphetamine could have contributed to his paranoia. He had described having a long history of difficulties with interactions with the mental health field and reported that due to his trauma he had struggled with chronically struggling with trusting others. He had described continuing to feel stressed and reported that he wished to leave here as soon as possible. He was redirectable on the milieu and was engaged in groups today. Mental Status Exam MSE Comments: This is an obese, white male, in hospital scrubs, with improving grooming and eye contact. No abnormal movements, except for resolving psychomotor retardation. He was somewhat guarded with exam in mild distress. Speech was more normal rate and volume, with no thought blocking noted. Mood described as better; affect remained restricted. Thought process was linear. Thought content: patient denied any suicidal or homicidal ideation. There was no overt delusions. The patient denied any auditory or visual hallucinations. Attention, concentration, and memory were limited, but none were formally tested. Alert and oriented x3. Insight was poor and judgment appear impaired. Impulse control is improving. Vitals/I&O/Wt Last Vital Signs Temp 98.4 F 04/25/23 14:00 Pulse 85 04/25/23 14:00 Resp 16 04/25/23 14:00 BP 153/93 04/25/23 14:00 Pulse Ox 97 04/25/23 14:00 O2 Del Method Room Air 04/25/23 14:00 Data NPU 04/09/23 15:55 04/09/23 15:55 A&P Assessment and plan (1) Acute psychosis: (2) Methamphetamine use disorder, severe: (3) Cannabis use disorder: Plan This is a 30-year-old white male who presented to crisis stabilization services with altered mental status which led to him being placed on a 96-hour hold and presents to the neuropsychiatric unit with clear psychosis of unknown etiology without ability or willingness to be an accurate historian. UDS positive for amphetamines and cannabis as well as benzodiazepines which may be secondary to emergency department administration. 1.? Encourage individual, group, and milieu therapy. 2.? Continue q-15-minute checks for safety. 3. We will continue to encourage utilization of antipsychotics. 4. Encourage sober living treatment after discharge at the highest level of care to which he is willing to commit. 5. Discontinue oral invega after tommorow, Invega 157mg IM tommorow. Seeking short term housing or care home -[place]? 6. Amoxicillin 500mg tid for abcess. Involuntary Hold Information 96 Hour Hold: 96 Hour Involuntary Admission: Yes 96 Hour Hold Ending Date: 04/17/23 96 Hour Hold Ending Time: 00:01 Attestations NPU Medical Necessity Statement*: Inpatient hospitalization is medically necessary and the clinically appropriate intervention, at this time. We will monitor medications and make changes as indicated. The patient's likely length of stay is two to three days. Coding Level of Care Code Acute Code for [facility] Fwd Diagnoses Acute psychosis F23 Methamphetamine use disorder, severe F15.20 Cannabis use disorder F12.90
[2023-04-25] MEDS: hyDROXYzine 25 mg Capsule 50 MG PO (20:31)
[2023-04-25 22:00] VITALS: BP 157/106; PULSE 77; RESP 18; TEMP 36.3; O2SAT 98
[2023-04-26 06:00] VITALS: BP 154/93; PULSE 84; RESP 18; O2SAT 95
[2023-04-26] MEDS: lisinopril 10 mg Tablet PO (09:30)
[2023-04-26] MEDS: multivitamin therapeutic Tablet 1 TAB PO (09:30)
[2023-04-26] MEDS: loperamide 2 mg Capsule PO (09:31)
[2023-04-26] MEDS: paliperidone ER 3 mg Tablet PO (09:31)
[2023-04-26] MEDS: ibuprofen 600 mg Tablet PO (09:31)
[2023-04-26] MEDS: nystatin powder 30 gm Btl 1 APPLIC TOPICAL (09:31)
[2023-04-26] MEDS: nicotine 2 mg Gum BUCCAL ×4 (09:56→16:42)
[2023-04-26] MEDS: paliperidone palmitate 156 mg Syringe IM (11:17)
[2023-04-26 14:00] VITALS: BP 159/106; PULSE 88; RESP 16; TEMP 36.8; O2SAT 96
--- NOTE | 2023-04-26 14:35 | W.PM.NPUDCS ---
Diagnoses at Discharge Discharge Diagnosis (1) Acute psychosis: Status: Acute (2) Methamphetamine use disorder, severe: Status: Acute (3) Cannabis use disorder: Status: Acute Reason for Visit Reason for Visit: PSYCH EVAL Brief History: History of Present Illness Feliberto Joseph is a 42 year old male who presented to the emergency department with the following report: Chief Complaint: Psychiatric Symptoms Stated Complaint: PSYCH EVAL Time Seen by Provider: 04/09/23 15:20 Limitations: altered mental status History of Present Illness: ? Patient presents here with deputies at bedside.? Patient's on a 96-hour hold from the court system.? Patient was brought in for auditory visual hallucinations from the crisis center.? Patient is resistive to care, irritable, and is a known paranoid schizophrenic who has not been taking his medicine. This is a patient who presented to the [facility] crisis stabilization center with altered mental status and reports of paranoia about whether his food is being poisoned appearing different than recent encounters, reporting auditory hallucinations with concerns about his safety.? A 96-hour hold was initiated and he was transferred to the emergency department and the patient was admitted to the neuropsychiatric unit for definitive treatment of those issues. The patient presents today reporting that he is not taking any psychiatric medications, that he is aware of. He reports that ?misdirection? is what brought him to the hospital. The patient did not want to talk about psychiatric hospitalizations, saying it is nobody else?s business. It was explained that he is here on a 96-hour hold and he needs to be evaluated to see why he is here and if and for how long he needs to be here. Also explained that if he does not want to answer questions, he can do that, but then the only information will come from the affidavit and his current behaviors as far as this evaluation. The patient reports that he ?got raided? and was thrown out of the place he was staying. He reports that he went to crisis stabilization. The patient reports that he has not had previous psychiatric hospitalizations. He reports that he thinks he has talked to a counselor. He reports that he has had medicine, here and there, but did not answer specifically about psychiatric medications. The patient endorses tobacco, alcohol, and marijuana use. He said he has probably had cocaine, methamphetamine and opiate use. He endorses drug rehabilitation. When asked if he has ever taken medications to help with hearing or seeing things, he said no he has not taken any ?enhancement? drugs. Explained that I would meet with him every day to evaluate whether he is safe for discharge after the 96-hour hold is up, and explained he does not have to answer questions and can refuse medication recommendations, and that that will affect those decisions. PSYCHIATRIC HISTORY: Unable to obtain reliably. SUBSTANCE ABUSE HISTORY: As above. FAMILY HISTORY: Unable to obtain DEVELOPMENTAL HISTORY: Unable to obtain PSYCHOSOCIAL HISTORY: Unable to obtain LEGAL HISTORY: Unable to obtain reliably. MEDICAL HISTORY: The patient denies any known allergies to medications. Hospital Course Hospital Course During the hospitalization, the patient had routine laboratory studies which were within normal limits except for a few outliers.? Additionally, there was a general medical evaluation which was also within normal limits and revealed no new acute processes.? At the time of discharge, lethality was denied and psychosis was resolving.? Mood and anxiety were well managed.? The patient endorsed a plan to avoid all drugs of abuse and follow up with the aftercare recommendations of the treatment team.? The patient was evaluated and deemed to be absent credible lethality and had achieved the maximum benefit from an inpatient hospitalization, and so was discharged.? The patient was started on oral Invega and titrated up to a dose of 9mg daily while invega sustenna IM 234mg was given on 04/21/23 and 156mg of invega sustenna was given on 04/26/23 at discharge. Involuntary Hold Information 96 Hour Hold: 96 Hour Involuntary Admission: Yes 96 Hour Hold Ending Date: 04/17/23 96 Hour Hold Ending Time: 00:01 Mental Status Exam MSE Comments: This is an obese, white male, in hospital scrubs, with improving grooming and eye contact. No Abnormal involuntary motor movements were appreciated. He was friendly and cooperative on interview. Speech was more normal in rate and volume, with no thought blocking noted. Mood described as better; affect Was bright on discharge. Thought process was linear. Thought content: patient denied any suicidal or homicidal ideation. There was no overt delusions. The patient denied any auditory or visual hallucinations. Attention, concentration, and memory appeared adequate. He was alert and oriented x3. Insight was fair and judgment appear fair. His impulse control appeared fair. Discharge Data Studies Completed and Pending: Completed Studies During Hospitalization Category Date Time Status XR hand RT min 3V * [id number] Routine Exams 04/10/23 08:15 Completed Radiology Impressions Hand X-Ray 04/10/23 08:15 IMPRESSION: No acute findings. Laboratory Results WBC 10.88 10^3/uL (3. 29-11.43) 04/09/23 15:55 RBC 5.92 10^6/uL (3.8 5-5.65) H 04/09/23 15:55 Hgb 17.90 g/dL (11.27 -16.99) H 04/09/23 15:55 Hct 55.1 % (37-53) H 04/09/23 15:55 MCV 93.1 fl (82-101) 04/09/23 15:55 MCH 30.2 pg (27-33) 04/09/23 15:55 MCHC 32.5 g/dL (30-55) 04/09/23 15:55 RDW 12.6 % (12.1-15.1 ) 04/09/23 15:55 Plt Count 272 10^3/cmm (157 -399) 04/09/23 15:55 MPV 9.7 fL (7.4-10.4) 04/09/23 15:55 Neut % (Auto) 66.4 % 04/09/23 15:55 Lymph % (Auto) 25.3 % 04/09/23 15:55 Ida % (Auto) 6.5 % 04/09/23 15:55 Eos % (Auto) 0.9 % 04/09/23 15:55 Baso % (Auto) 0.5 % 04/09/23 15:55 Neut # (Auto) 7.23 10^3/uL (1.8 -7.7) 04/09/23 15:55 Lymph # (Auto) 2.8 10^3/uL (0.8- 4.8) 04/09/23 15:55 Ida # (Auto) 0.7 10^3/uL (0.2- 0.9) 04/09/23 15:55 Eos # (Auto) 0.1 10^3/uL (0.0- 0.8) 04/09/23 15:55 Baso # (Auto) 0.1 10^3/uL (0.0- 0.1) 04/09/23 15:55 Nucleated RBC % (a uto) 0 % 04/09/23 15:55 Nucleated RBCs # 0.0 /100WBC 04/09/23 15:55 Sodium 136 mmol/L (136-1 45) 04/09/23 15:55 Potassium 4.3 mmol/L (3.5-5 .1) 04/09/23 15:55 Chloride 98 mmol/L (98-107 ) 04/09/23 15:55 Carbon Dioxide 23 mmol/L (22-29) 04/09/23 15:55 Anion Gap 19.3 (5-19) H 04/09/23 15:55 BUN 26 mg/dL (6-20) H 04/09/23 15:55 Creatinine 1.1 mg/dL (0.7-1. 2) 04/09/23 15:55 GFR Calculation 73.4 mL/min (90-1 30) L 04/09/23 15:55 Glucose 110 mg/dL (65-115 ) 04/09/23 15:55 Calculated Osmolal ity 287 mOsm/kg (285- 295) 04/09/23 15:55 Calcium 10.5 mg/dL (8.5-1 0.5) 04/09/23 15:55 Total Bilirubin 0.9 mg/dL (0.15-1 .2) 04/09/23 15:55 AST 24 U/L (0-40) 04/09/23 15:55 ALT 34 U/L (0-41) 04/09/23 15:55 Alkaline Phosphata se 72 U/L (40-130) 04/09/23 15:55 Total Protein 8.6 g/dL (6.6-8.7 ) 04/09/23 15:55 Albumin 5.0 g/dL (3.5-5.2 ) 04/09/23 15:55 Globulin 3.6 g/dL (1.3-4.6 ) 04/09/23 15:55 Urine Color Tricia (Yellow) 04/09/23 20:40 Urine Appearance Clear (CLEAR) 04/09/23 20:40 Urine pH 5 (5-7) 04/09/23 20:40 Ur Specific Gravit y 1.030 (1.005-1.0 30) 04/09/23 20:40 Urine Protein Trace (Negative) 04/09/23 20:40 Urine Glucose (UA) Norm (Normal) 04/09/23 20:40 Urine Ketones 3+ (Negative) H 04/09/23 20:40 Urine Blood 2+ (Negative) H 04/09/23 20:40 Urine Nitrate Negative (Negati ve) 04/09/23 20:40 Urine Bilirubin 1+ (Negative) H 04/09/23 20:40 Urine Urobilinogen Neg mg/dL (Negati ve) 04/09/23 20:40 Ur Leukocyte Britany ase Negative (Negati ve) 04/09/23 20:40 Urine RBC 0-4 /hpf (0-2) H 04/09/23 20:40 Urine WBC 0-4 /hpf (0-5) H 04/09/23 20:40 Ur Squamous Epith Cells 0-4 /hpf (0-5) H 04/09/23 20:40 Amorphous Sediment 1+ /hpf 04/09/23 20:40 Urine Bacteria Trace /hpf (NONE) 04/09/23 20:40 Urine Mucus 3+ /hpf 04/09/23 20:40 Salicylates < 0.3 mg/dL (3-10 ) L 04/09/23 15:55 Urine Opiates Scre en Negative ng/mL (N egative) 04/09/23 20:40 Acetaminophen < 5.0 ug/mL (10-3 0) L 04/09/23 15:55 Ur Barbiturates Sc reen Negative ng/mL (N egative) 04/09/23 20:40 Ur Phencyclidine S crn Negative ng/mL (N egative) 04/09/23 20:40 Ur Amphetamines Sc reen Positive ng/mL (N egative) H 04/09/23 20:40 U Benzodiazepines Scrn Positive ng/mL (N egative) H 04/09/23 20:40 Urine Cocaine Scre en Negative ng/mL (N egative) 04/09/23 20:40 U Marijuana (THC) Screen Positive ng/mL (N egative) H 04/09/23 20:40 Ethyl Alcohol < 10 mg/dL (0-10) 04/09/23 15:55 Vitals: Last Vital Signs Temp 97.4 F L 04/25/23 22:00 Pulse 84 04/26/23 06:00 Resp 18 04/26/23 06:00 BP 154/93 04/26/23 06:00 Pulse Ox 95 04/26/23 06:00 O2 Del Method Room Air 04/26/23 06:00 Discharge Plan Discharge Patient Disposition: Home Condition: Stable Prescriptions: New amoxicillin 250 mg Capsule 500 mg PO TID 9 Days Qty: 54 0RF Rx Instructions: Take for 9 days then discontinue lisinopril 10 mg Tablet 10 mg PO DAILY 30 Days Qty: 30 1RF Invega Sustenna 117 mg/0.75 mL syringe 117 mg IM Q30D Qty: 0.75 1RF Rx Instructions: Inject IM on 05/26/2023 (5 weeks after initial dose) Discharge Orders: Discharge Order (Routine); Ordered 04/26/23 Ordered By: Josse Darling Referrals: [facility] [Other] - 04/26/23 [facility] [Outside] - 05/02/23 11:30 am (Initial appointemnt with Ann-Marie Marmolejo on 05/02/23 11:30 AM. ) Discharge Diet: Usual diet Discharge Activity: Resume usual activity Patient Instructions: Lisinopril (By mouth), Amoxicillin (By mouth), Methamphetamine (By mouth), Paliperidone (By injection), Opioid Safety Discharge Attestations NPU Time Spent in Discharge Care*: less than 30 min Specific Discharge Activities: Specific discharge activities: educating patient and discussing with rehabilitation case coordinator/social workers/dc planners Coding Level of Care Code Acute [facility] DC note Diagnoses Acute psychosis F23 Methamphetamine use disorder, severe F15.20 Cannabis use disorder F12.90
[2023-04-26 15:09] VITALS: BP 154/93; PULSE 84; RESP 18; O2SAT 95
== END 2023-04-26 17:46 | disposition home or self-care (01) | DRG 897 ==
LOC: ER 16:14 → NP 18:09
PROVIDERS: Admitting Provider Psychiatry & Neurology Psychiatry; Emergency Provider Emergency Medicine; Visit Provider Psychiatry & Neurology Psychiatry
DX: F15.151 Other stimulant abuse with stimulant-induced psychotic disorder with hallucinations (principal); F20.0 Paranoid schizophrenia; Z91.148 Patient's other noncompliance with medication regimen for other reason; F12.10 Cannabis abuse, uncomplicated; F17.210 Nicotine dependence, cigarettes, uncomplicated
CPT/HCPCS: 36415; 73130; 80053; 80306; 80307; 81001; 85025; 93005; 96372; 97150; 97165; 99285; J2060; J3490